=== PATIENT | female | born 1985 ===

== ENCOUNTER → 2023-10-28 12:49 | Outpatient (BNVA) | payer OTHER, SELFPAY | PROVIDERS: PCP Internal Medicine; Visit Provider Physician Assistant Surgical ==

== ENCOUNTER 2023-12-17 08:12 | Outpatient (AMB) | payer OTHER, SELFPAY ==
--- OUTSIDE RECORDS SUMMARY | 2023-12-17 08:14 | XMS_ITS | Continuity of Care Document ---
Author Organization [facility] Address [address] [place] [address]- Care Team Providers Care Ocean Lifeguard Name Role Phone Curtis ANTHONY, Denisse Kellogg Primary Care Physician Encounter [facility] ACCT R [id number] Date(s): 10/24/21 - 11/23/[address] [address] Attending Physician: Sanju James Admitting Physician: Sanju James Referring Physician: Sanju James Allergies, Adverse Reactions, Alerts Substance Reaction Severity Status metFORMIN GI intolerance Active Immunizations Given and Recorded Vaccine Date Status Refusal Reason SARS-CoV-2 (COVID-19) mRNA BNT-162b2 vac 1, 2 01/24/21 Given SARS-CoV-2 (COVID-19) mRNA BNT-162b2 vac 01/03/21 Given tetanus/diphtheria/pertussis, acel(Tdap) 01/25/17 Given 1? Unknown: Resend to [facility]. 2Result Comment: lot was [id number] Medications acetaminophen 325 mg oral tablet 650 mg, 2, tablet, By Mouth, 3 times a day, PRN, # 180 tablet, Refills 11, Tot. Refills 11, Maintenance, for pain, 03/03/21 16:43:00 EDT, Route to Pharmacy Electronically, [facility]/pharmacy #[id number], Partialfill upon patient request if the prescription is fo... Start Date: 03/03/21 Status: Ordered ferrous sulfate 325 mg oral enteric coated tablet 325 mg, 1, tablet, By Mouth, Daily, for anemia, # 30 tablet, Refills 11, Tot. Refills 11, Maintenance, 01/02/21 15:55:00 EDT, Route to Pharmacy Electronically, [facility]/pharmacy #[id number], Partial fill upon patient request if the prescription is for a schedule... Start Date: 01/02/21 Status: Ordered hydrOXYzine hydrochloride 25 mg oral tablet 1 tablet = 25 mg, By Mouth, 4 times a day, PRN for anxiety, # 40 tablet, 0 Refills, Maintenance, 03/03/21 16:43:00 EDT, Tablet, [facility]/pharmacy #[id number], Partial fill upon patient request if the prescription is for a schedule II opioid drug., 153, cm, 03/03... Start Date: 03/03/21 Status: Ordered levothyroxine 0.2 mg oral tablet 1 tablet = 200 mcg, By Mouth, Daily, for hypothyroid, # 60 tablet, 11 Refills, Maintenance, 01/02/21 15:33:00 EDT, Tablet, [facility]/pharmacy #[id number], Partial fill upon patient request if the prescription isfor a schedule II opioid drug., 153, cm, 01/02/21 1... Start Date: 01/02/21 Stop Date: 12/23/22 Status: Ordered Nexplanon 68 mg subcutaneous implant 1 each = 68 mg, Subcutaneous Infusion, Once, # 1 each, 0 Refills, Soft Stop, 03/01/17 16:13:38 Start Date: 03/01/17 Status: Ordered sertraline 100 mg oral tablet 1 tablet, By Mouth, Daily, # 30 tablet, 1 Refills, [facility] STORE [id number], 153, cm, 10/13/21 14:57:00 EDT,Height Start Date: 11/06/21 Status: Ordered Vitamin D3 1000 intl units oral capsule 1 capsule = 25 mcg, By Mouth, Daily, for vitamin d deficiency, # 30 capsule, 11 Refills, Maintenance, 09/23/21 17:57:00 EDT, Capsule, [facility]/pharmacy #[id number], Partial fill upon patient request if the prescription is for a schedule II opioid drug., 153, cm,... Start Date: 09/23/21 Status: Ordered Problem List Condition Effective Dates Status Health Status Inform ant Elevated glucose tolerance test(Confirmed) Active Abnormal uterine bleeding (AUB)(Confirmed) Active Candidal vaginitis(Confirmed) Active B12 deficiency(Confirmed) Active Diabetes(Confirmed) Active Graves' ophthalmopathy(Confirmed) Active Healthy adult(Confirmed) Active Hypothyroid(Confirmed) Active Hypothyroidism, postablative(Confirmed) Active Depression, major, recurrent , severe with psychosis(Confirmed) Active Restless leg syndrome(Confirmed) Active Severe obesity(Confirmed) Active Exogenous obesity(Confirmed) Active Social History Social History Type Response Tobacco Use: 4 or less cigar ettes(less than 1/4 pack)/day in last 30 days. Other: 5 ciggs / day. Type: Cigarettes. Sex Female
--- OUTSIDE RECORDS SUMMARY | 2023-12-17 08:14 | XMS_ITS | Continuity of Care Document ---
Author Organization [facility] Address [address] [place] [address]- Care Team Providers Care Instructional Developer Name Role Phone Denisse Acevedo MD Primary Care Physician [place] [facility] [place](s[place] 08/03/23 - 09/02/23 [facility] [address] [place], [place] [address] Allergies, Adverse Reactions, Alerts Substance Reaction Severity Status metFORMIN GI intolerance Active Immunizations Given and Recorded Vaccine Date Status Refusal Reason SARS-CoV-2 (COVID-19) mRNA BNT-162b2 vac 1, 2 01/24/21 Given SARS-CoV-2 (COVID-19) mRNA BNT-162b2 vac 01/03/21 Given tetanus/diphtheria/pertussis, acel(Tdap) 01/25/17 Given 1? Unknown: Resend to [facility]. 2Result Comment: lot was [id number] Medications Blood Pressure Monitor See Instructions, # 1 each, Refills 0, Tot. Refills 0, Maintenance, HTN, I10 duration: 1 year, takeBP daily 2 hours after morning medications, call MD if BP > 180/100, 08/17/23 9:49:00 EST, Compound, 153, cm, 08/17/23 9:20:00 EST, Height Start Date: 08/17/23 Status: Ordered buPROPion 150 mg/24 hours (XL) oral tablet, extended release 1 tablet = 150 mg, By Mouth, Every 24 hours, d/c fluoxetine, # 30 tablet, 4 Refills, Maintenance, 08/17/23 9:46:00 EST, ER Tablet, [id number], Partial fill upon patient request if the prescription is for a schedule II opioid drug., 1 tablet By... Start Date: 08/17/23 Status: Ordered diclofenac 1% topical gel 1 application, Topically, 4 times a day, PRN Pain , Mild, # 100 Gm, 4 Refills, Maintenance, 01/05/22 11:45:00 EDT, Gel, [facility]/pharmacy #[id number], Partial fill upon patient request if the prescription is for a schedule II opioid drug., 153, cm, 01/05/22 11:0... Start Date: 01/05/22 Status: Ordered ferrous sulfate 325 mg oral enteric coated tablet 325 mg, 1, tablet, By Mouth, Every Wednesday, Wednesday and Wednesday, # 39 tablet, Refills 3, Tot. Refills 3, Maintenance, 05/20/23 10:58:00 EST, Route to Pharmacy Electronically, [facility]/pharmacy #[id number], Partial fill upon patient request if the prescription is... Start Date: 05/20/23 Status: Ordered Freestyle Lite Lancets See Instructions, # 200 each, Refills 11, Tot. Refills 11, Maintenance, Check POC daily and if symptoms of sweats, dizziness, confusion,, DX E11.9, 08/17/23 9:40:00 EST, Compound, 153, cm, 08/17/23 9:20:00 EST, Height Start Date: 08/17/23 Status: Ordered Freestyle Lite Monitor See Instructions, # 1 each, Refills 0, Tot. Refills 0, Maintenance, Check POC TID and qHS and if symptoms of sweats, dizziness, confusion, DX E11.9, 08/17/23 9:40:00 EST, Compound, 153, cm, 08/17/23 9:20:00 EST, Height Start Date: 08/17/23 Status: Ordered Freestyle Lite Test Strips See Instructions, # 50 each, Refills 11, Tot. Refills 11, Maintenance, Check POC daily and if symptoms of sweats, dizziness, confusion, DX E11.9, 08/17/23 16:12:00 EST, Compound, 153, cm, 08/17/23 9:20:00 EST, Height Start Date: 08/17/23 Status: Ordered hydrOXYzine hydrochloride 25 mg oral tablet 1 tablet = 25 mg, By Mouth, 4 times a day, PRN for anxiety, # 40 tablet, 0 Refills, Acute 09/13/23 15:55:00 EDT, 08/26/23 15:54:00 EDT, Tablet, [id number], Partial fill upon patient request if the prescription is for a schedule II opioid drug.... Start Date: 08/26/23 Stop Date: 09/13/23 Status: Ordered levothyroxine 150 mcg (0.15 mg) oral tablet 1 tablet, By Mouth, Daily in AM, BEFORE BREAKFASTON EMPTY STOMACH., # 90 tablet, 1 Refills, Maintenance, 05/02/23 13:38:00 EST, [id number], 153, cm, 11/13/22 9:48:00 EDT, Height Start Date: 05/02/23 Status: Ordered Metamucil 3.4 gm/5.2 gm oral powder for reconstitution = 1.7 Gm, By Mouth, Daily, PRN as needed for constipation, # 283 Gm, 11 Refills, Maintenance, 11/13/22 10:18:00 EDT, REC Powder, [id number], Partial fill upon patient request if the prescription is for a schedule II opioid drug., 153, cm, 0... Start Date: 11/13/22 Status: Ordered olmesartan 5 mg oral tablet 1 tablet, By Mouth, Daily, # 90 tablet, 1 Refills, Maintenance, 06/13/23 9:43:00 EST, [id number], 153, cm, 05/20/23 10:37:00 EST, Height Start Date: 06/13/23 Status: Ordered tirzepatide 2.5 mg/0.5 mL subcutaneous solution = 2.5 mg, Subcutaneous Injection, Every week, rotate injection sites; use Tirzepatide 0.25mg weeklyx 4 weeks then increase dose, # 4 each, 0 Refills, Maintenance, 08/04/23 8:55:00 EST, Solution, [id number], d/c trulicity, 153, cm, 05/20/23 10... Start Date: 08/04/23 Status: Ordered tirzepatide 5 mg/0.5 mL subcutaneous solution = 5 mg, Subcutaneous Injection, Every week, rotate injection sites; use Tirzepatide 0.25mg weekly x4 weeks then increase dose, # 4 each, 4 Refills, Maintenance, 08/04/23 8:55:00 EST, Solution, [id number], Partial fill upon patient request if... Start Date: 08/04/23 Status: Ordered Vitamin C 500 mg oral tablet 1 tablet = 500 mg, By Mouth, Daily, # 90 tablet, 3 Refills, Maintenance, 10/19/22 18:14:00 EDT, Tablet, [id number], Partial fill upon patient request if the prescription is for a schedule II opioid drug., 153, cm, 09/10/22 18:41:00 EDT, Height Start Date: 10/19/22 Status: Ordered Problem List Condition Confirmation Course Effective Dates Status H ealth Status Informant Elevated glucose tolerance test Confirmed Active Candidal vaginitis Confirmed Active B12 deficiency Confirmed Active Diabetes Confirmed Active Graves' ophthalmopathy Confirmed Active Hypertension Confirmed Active Hypothyroid Confirmed Active Iron deficiency anemia Confirmed Active Hypothyroidism, postablative Confirmed Active Depression, major, recurrent, severe with psychosis Confirmed Active Restless leg syndrome Confirmed Active Severe obesity Confirmed Active Tobacco use Confirmed Active Social History Social History Type Response Tobacco Use: 4 or less cigar ettes(less than 1/4 pack)/day in last 30 days. Other: 5 ciggs / day. Type: Cigarettes. Sex Female Patient Care team information Care Team Personnel Name: Curtis ANTHONY, Denisse Kellogg Position: [facility] Physician - Primary Care Member Role: PCP Address: Address: [address] [place] [address]- Care Team Related Persons Name: INDERJIT WATT Address: home [address] [place] [id number] Name: HITESH WATT Address: [place] [address] Name: PT STATES, NO ONE Name: CHELSIE FRY Address: [place] [address]
--- OUTSIDE RECORDS SUMMARY | 2023-12-17 08:14 | XMS_ITS | Continuity of Care Document ---
Author Organization [facility] Address [address] [place] [address]- Care Team Providers Care Wool Puller Name Role Phone Thomas ANTHONY, Miriam Primary Care Physician Encounter [facility] Date(s): 09/04/20 - 10/04/20 [facility] [address] [place] [id number] Allergies, Adverse Reactions, Alerts Substance Reaction Severity Status NKA Active Immunizations Given and Recorded Vaccine Date Status Refusal Reason tetanus/diphtheria/pertussis, acel(Tdap) 01/25/17 Given Medications Apri 0.15 mg-0.03 mg oral tablet 1 tablet, By Mouth, Daily, # 84 tablet, 0 Refills, Maintenance, 02/28/19 12:56:04 EDT, Tablet, 1 tablet By Mouth Daily Start Date: 02/28/19 Status: Ordered busPIRone 15 mg oral tablet 1 tablet = 15 mg, By Mouth, 2 times a day, 0 Refills, Maintenance, 08/17/18 16:19:55 EST Start Date: 08/17/18 Status: Ordered levothyroxine 0.2 mg oral tablet 1 tablet = 200 mcg, By Mouth, Daily, increase from .175mg, # 30 tablet, 3 Refills, Maintenance, 05/04/17 14:19:03, Tablet Start Date: 05/04/17 Stop Date: 09/01/17 Status: Ordered Nexplanon 68 mg subcutaneous implant 1 each = 68 mg, Subcutaneous Infusion, Once, # 1 each, 0 Refills, Soft Stop, 03/01/17 16:13:38 Start Date: 03/01/17 Status: Ordered venlafaxine 37.5 mg oral capsule, extended release 37.5 mg, 1, capsule, By Mouth, Daily, Refills 0, Maintenance, 08/17/18 16:20:19 EST Start Date: 08/17/18 Status: Ordered Problem List Condition Effective Dates Status Health Status Inform ant Elevated glucose tolerance test(Confirmed) Active Abnormal uterine bleeding (AUB)(Confirmed) Active Candidal vaginitis(Confirmed) Active Graves' ophthalmopathy(Confirmed) Active Diabetes, gestational(Confirmed) Active Healthy adult(Confirmed) Active Hypothyroidism, postablative(Confirmed) Active Exogenous obesity(Confirmed) Active Social History Social History Type Response Smoking Status 5-9 cigarettes (betw een 1/4 to 1/2 pack)/day in last 30 days; Type: Cigarettes entered on: 10/27/18 Sex Female
--- OUTSIDE RECORDS SUMMARY | 2023-12-17 08:14 | XMS_ITS | Continuity of Care Document ---
Author Organization [facility] Address [address] [place] [address]- Care Team Providers Care Diesel Machinist Name Role Phone Curtis ANTHONY, Denisse Kellogg Primary Care Physician Encounter [facility] Date(s): 02/06/22 - 03/08/22 [facility] [address] [place] [address]- Allergies, Adverse Reactions, Alerts Substance Reaction Severity Status metFORMIN GI intolerance Active Immunizations Given and Recorded Vaccine Date Status Refusal Reason SARS-CoV-2 (COVID-19) mRNA BNT-162b2 vac 1, 2 01/24/21 Given SARS-CoV-2 (COVID-19) mRNA BNT-162b2 vac 01/03/21 Given tetanus/diphtheria/pertussis, acel(Tdap) 01/25/17 Given 1? Unknown: Resend to [facility]. 2Result Comment: lot was [id number] Medications diclofenac 1% topical gel 1 application, Topically, 4 times a day, PRN Pain , Mild, # 100 Gm, 4 Refills, Maintenance, 01/05/22 11:45:00 EDT, Gel, [id number], Partial fill upon patient request if the prescription is for a schedule II opioid drug., 153, cm, 01/05/22 11:0... Start Date: 01/05/22 Status: Ordered ferrous gluconate 324 mg oral tablet 1 tablet = 324 mg, By Mouth, Every other day, for anemia;, # 15 tablet, 4 Refills, Maintenance, 02/05/22 13:55:00 EDT, Tablet, [id number], Change iron formulation, 153, cm, 02/05/22 13:39:00 EDT, Height Start Date: 02/05/22 Status: Ordered FLUoxetine 20 mg oral capsule 20 mg, 1, capsule, By Mouth, Daily, # 30 capsule, Refills 4, Tot. Refills 4, Maintenance, 02/05/22 13:20:00 EDT, Route to Pharmacy Electronically, [facility]/pharmacy #[id number], Partial fill upon patient request if the prescription is for a schedule II opioid dr... Start Date: 02/05/22 Status: Ordered Freestyle Lite Lancets See Instructions, # 200 each, Refills 11, Tot. Refills 11, Maintenance, Check POC daily and if symptoms of sweats, dizziness, confusion,, DX E11.9, 01/05/22 11:35:00 EDT, Compound, 153, cm, 01/05/22 11:00:00 EDT, Height Start Date: 01/05/22 Status: Ordered Freestyle Lite Monitor See Instructions, # 1 each, Refills 0, Tot. Refills 0, Maintenance, Check POC daily and if symptomsof sweats, dizziness, confusion, DX E11.9, Z79.4, 01/05/22 11:34:00 EDT, Compound, 153, cm, 01/05/22 11:00:00 EDT, Height Start Date: 01/05/22 Status: Ordered Freestyle Lite Test Strips See Instructions, # 200 each, Refills 11, Tot. Refills 11, Maintenance, Check POC daily and if symptoms of sweats, dizziness, confusion, DX E11.9, 01/05/22 11:35:00 EDT, Compound, 153, cm, 01/05/22 11:00:00 EDT, Height Start Date: 01/05/22 Status: Ordered hydrOXYzine hydrochloride 25 mg oral tablet 1 tablet = 25 mg, By Mouth, 4 times a day, PRN for anxiety, # 40 tablet, 0 Refills, Maintenance, 03/03/21 16:43:00 EDT, Tablet, [facility]/pharmacy #[id number], Partial fill upon patient request if the prescription is for a schedule II opioid drug., 153, cm, 03/03... Start Date: 03/03/21 Status: Ordered levothyroxine 150 mcg (0.15 mg) oral tablet 1 tablet = 150 mcg, By Mouth, Daily, decreased from 200mcg on 02/06 due to TSH levels, # 30 tablet, 2 Refills, Maintenance, 02/06/22 11:30:00 EDT, Tablet, [id number], Partial fill upon patient request if the prescription is for a schedule... Start Date: 02/06/22 Status: Ordered MetFORMIN (Eqv-Fortamet) 1000 mg oral tablet, extended release 1 tablet = 1,000 mg, By Mouth, 2 times a day, # 60 tablet, 0 Refills, Maintenance, 02/05/22 13:55:00 EDT, [id number], Partial fill upon patient request if the prescription is for a schedule II opioid drug., 153, cm, 02/05/22 13:39:00 EDT, Height Start Date: 02/05/22 Stop Date: 03/07/22 Status: Ordered Nexplanon 68 mg subcutaneous implant 1 each = 68 mg, Subcutaneous Infusion, Once, # 1 each, 0 Refills, Soft Stop, 03/01/17 16:13:38 Start Date: 03/01/17 Status: Ordered Provera 10 mg oral tablet 10 mg, 1, tablet, By Mouth, Daily, # 10 tablet, Refills 0, Tot. Refills 0, Maintenance, 01/05/22 11:40:00 EDT, Route to Pharmacy Electronically, [id number], Partial fill upon patient request if the prescription is for a schedule II opioid drug... Start Date: 01/05/22 Stop Date: 01/15/22 Status: Ordered Vitamin D3 1000 intl units oral capsule 1 capsule = 25 mcg, By Mouth, Daily, for vitamin d deficiency, # 30 capsule, 11 Refills, Maintenance, 09/23/21 17:57:00 EDT, Capsule, [id number], Partial fill upon patient request if the prescription is for a schedule II opioid drug., 153, cm,... Start Date: 09/23/21 Status: Ordered Problem List Condition Effective Dates Status Health Status Inform ant Elevated glucose tolerance test(Confirmed) Active Abnormal uterine bleeding (AUB)(Confirmed) Active Candidal vaginitis(Confirmed) Active B12 deficiency(Confirmed) Active Diabetes(Confirmed) Active Graves' ophthalmopathy(Confirmed) Active Healthy adult(Confirmed) Active Hypothyroid(Confirmed) Active Iron deficiency anemia(Confirmed) Active Hypothyroidism, postablative(Confirmed) Active Depression, major, recurrent , severe with psychosis(Confirmed) Active Restless leg syndrome(Confirmed) Active Severe obesity(Confirmed) Active Exogenous obesity(Confirmed) Active Social History Social History Type Response Tobacco Use: 4 or less cigar ettes(less than 1/4 pack)/day in last 30 days. Other: 5 ciggs / day. Type: Cigarettes. Sex Female Care Team Personnel Name: Curtis ANTHONY, Denisse Kellogg Address: [address] [place] [address], -Level [facility] [address]
--- OUTSIDE RECORDS SUMMARY | 2023-12-17 08:14 | XMS_ITS | Continuity of Care Document ---
Author Organization [facility] Address [address], [address] [place] [address]- Care Team Providers Care Bulk Gas Specialist Name Role Phone Curtis ANTHONY, Denisse Kellogg Primary Care Physician Encounter [facility] Date(s): 04/15/23 - 05/15/23 [facility] [address], [address] [place] [address]- Allergies, Adverse Reactions, Alerts Substance Reaction Severity Status metFORMIN GI intolerance Active Immunizations Given and Recorded Vaccine Date Status Refusal Reason SARS-CoV-2 (COVID-19) mRNA BNT-162b2 vac 1, 2 01/24/21 Given SARS-CoV-2 (COVID-19) mRNA BNT-162b2 vac 01/03/21 Given tetanus/diphtheria/pertussis, acel(Tdap) 01/25/17 Given 1? Unknown: Resend to [facility]. 2Result Comment: lot was [id number] Medications diclofenac 1% topical gel 1 application, Topically, 4 times a day, PRN Pain , Mild, # 100 Gm, 4 Refills, Maintenance, 01/05/22 11:45:00 EDT, Gel, [facility]/pharmacy #[id number], Partial fill upon patient request if the prescription is for a schedule II opioid drug., 153, cm, 01/05/22 11:0... Start Date: 01/05/22 Status: Ordered ferrous sulfate 325 mg oral enteric coated tablet 325 mg, 1, tablet, By Mouth, Every Wednesday, Wednesday and Wednesday, # 45 tablet, Refills 3, Tot. Refills 3, Maintenance, 11/13/22 10:26:00 EDT, Route to Pharmacy Electronically, [facility]/pharmacy #[id number], Partial fill upon patient request if the prescription is... Start Date: 11/13/22 Status: Ordered FLUoxetine 40 mg oral capsule 1 capsule = 40 mg, By Mouth, Daily, # 30 capsule, 4 Refills, Maintenance, 09/10/22 19:48:00 EDT, Capsule, [id number], Partial fill upon patient request if the prescription is for a schedule II opioid drug., 153, cm, 09/10/22 18:41:00 EDT, Height Start Date: 09/10/22 Status: Ordered Freestyle Lite Lancets See Instructions, [...] symptomsof sweats, dizziness, confusion, DX E11.9, Z79.4, 11/05/22 9:35:00 EDT, Compound, 153, cm, 09/10/2317:41:00 EDT, Height Start Date: 11/05/22 Status: Ordered Freestyle Lite Test Strips See Instructions, # 200 each, Refills 11, Tot. Refills 11, Maintenance, Check POC daily and if symptoms of sweats, dizziness, confusion, DX E11.9, 01/05/22 11:35:00 EDT, Compound, 153, cm, 01/05/22 11:00:00 EDT, Height Start Date: 01/05/22 Status: Ordered levothyroxine 150 mcg (0.15 mg) oral tablet 1 tablet, By Mouth, Daily in AM, BEFORE BREAKFASTON EMPTY STOMACH., # 90 tablet, 1 Refills, Maintenance, 05/02/23 13:38:00 EST, [facility] [id number], 153, cm, 11/13/22 9:48:00 EDT, Height Start Date: 05/02/23 Status: Ordered Metamucil 3.4 gm/5.2 gm oral powder for reconstitution = 1.7 Gm, By Mouth, Daily, PRN as needed for constipation, # 283 Gm, 11 Refills, Maintenance, 11/13/22 10:18:00 EDT, REC Powder, [id number], Partial fill upon patient request if the prescription is for a schedule II opioid drug., 153, cm, 060... Start Date: 11/13/22 Status: Ordered olmesartan 5 mg oral tablet 1 tablet = 5 mg, By Mouth, Daily, # 30 tablet, 5 Refills, Maintenance, 12/09/22 18:05:00 EDT, Tablet, [id number], Partial fill upon patient request if the prescription is for a schedule II opioid drug., 153, cm, 11/13/22 9:48:00 EDT, Height Start Date: 12/09/22 Status: Ordered Trulicity Pen 1.5 mg/0.5 mL subcutaneous solution See Instructions, INJECT 1 PEN SUBCUTANEOUSLY ONCE WEEKLY, ROTATE INJECTION SITES, # 2 Unknown, 5 Refills, Maintenance, 05/02/23 13:38:00 EST, [facility] [id number], 153, cm, 11/13/22 9:48:00 EDT, Height Start Date: 05/02/23 Status: Ordered Vitamin C 500 mg oral [...] Care team information Care Team Personnel Name: Denisse Acevedo MD Position: [facility] Physician - Primary Care Member Role: PCP Address: Address: [address] [place] [address]- [place] Care Team Related Persons Name: INDERJIT WATT Address: home [address] [place] [id number] Name: HITESH WATT Address: [place] [address] Name: PT STATES, NO ONE Name: CHELSIE FRY Address: [place] [address]
--- OUTSIDE RECORDS SUMMARY | 2023-12-17 08:14 | XMS_ITS | Continuity of Care Document ---
Author Organization [facility] Address [address] [place] [address]- Care Team Providers Care Landcare Officer Name Role Phone Curtis ANTHONY, Denisse Kellogg Primary Care Physician Encounter [facility] [place] Date(s): 04/14/22 - 06/12/[address] [address]- Attending Physician: Not on Staff, Attending MD Allergies, Adverse Reactions, Alerts Substance Reaction Severity Status metFORMIN GI intolerance Active Immunizations Given and Recorded Vaccine Date Status Refusal Reason SARS-CoV-2 (COVID-19) mRNA BNT-162b2 vac 1, 2 01/24/21 Given SARS-CoV-2 (COVID-19) mRNA BNT-162b2 vac 01/03/21 Given tetanus/diphtheria/pertussis, acel(Tdap) 01/25/17 Given 1? Unknown: Resend to [facility]. 2Result Comment: lot was [id number] Medications Debbie 0.35 mg oral tablet 1 tablet = 0.35 mg, By Mouth, Daily, # 30 tablet, 3 Refills, Maintenance, 04/14/22 11:53:00 EDT, Tablet, [id number], Partial fill upon patient request if the prescription is for a schedule IIopioid drug., 153, cm, 04/14/22 8:08:00 EDT, Height Start Date: 04/14/22 Status: Ordered diclofenac 1% topical gel 1 [...] other day, for anemia;, # 15 tablet, 11 Refills, Maintenance, 05/01/22 15:17:00 EST, Tablet, [facility]/pharmacy #[id number], Change iron formulation, 153, cm, 04/14/22 8:08:00 EDT, Height Start Date: 05/01/22 Status: Ordered FLUoxetine 20 mg oral capsule 20 mg, 1, capsule, By Mouth, Daily, # 30 capsule, Refills 4, Tot. Refills 4, Maintenance, 02/05/22 13:20:00 EDT, [id number], Partial fill upon patient request if [...] 0 Refills, Maintenance, 03/03/21 16:43:00 EDT, Tablet, [id number], Partial fill upon patient request if the prescription is for a schedule II opioid drug., 153, cm, 03/03... Start Date: 03/03/21 Status: Ordered levothyroxine 150 mcg (0.15 mg) oral tablet 1 tablet = 150 mcg, By Mouth, Daily, as a single daily dose before breakfast; on an empty stomach;,# 30 tablet, 11 Refills, Maintenance, 04/23/22 12:49:00 EST, Tablet, [id number], Partial fill upon patient request if the prescription is for... Start Date: 04/23/22 Status: Ordered MetFORMIN (Eqv-Fortamet) 1000 mg oral tablet, extended release 1 tablet = 1,000 mg, By Mouth, 2 times a day, # 60 tablet, 0 Refills, Maintenance, 02/05/22 13:55:00 EDT, [id number], Partial fill upon patient request if the prescription is for a schedule II opioid drug., 153, cm, 02/05/22 13:39:00 EDT, Height Start Date: 02/05/22 Stop Date: 03/07/22 Status: Ordered metFORMIN 1000 mg oral tablet 1 tablet = 1,000 mg, By Mouth, 2 times a day, # 60 tablet, 11 Refills, Maintenance, 05/01/22 15:00:00 EST, Tablet, [id number], Partial fill upon patient request if the prescription is for a schedule II opioid drug., 153, cm, 04/14/22 8:08:00 E... Start Date: 05/01/22 Status: Ordered Nexplanon 68 mg subcutaneous implant [...] Date: 09/23/21 Status: Ordered Problem List Condition Confirmation Course Effective Dates Status H ealth Status Informant Elevated glucose tolerance test Confirmed Active Abnormal uterine bleeding (AUB) Confirmed Active Candidal vaginitis Confirmed Active B12 deficiency Confirmed Active Diabetes Confirmed Active Graves' ophthalmopathy Confirmed Active Healthy adult Confirmed Active Hypothyroid Confirmed Active Iron deficiency anemia Confirmed Active Hypothyroidism, postablative Confirmed Active Depression, major, recurrent, severe with psychosis Confirmed Active Restless leg syndrome Confirmed Active Severe obesity Confirmed Active Exogenous obesity Confirmed Active Social History Social History Type Response Tobacco Use: 4 or less cigar ettes(less than 1/4 pack)/day in last 30 days. Other: 5 ciggs / day. Type: Cigarettes. Sex Female Patient Care team information Care Team Personnel Name: Denisse Acevedo MD Position: [facility] Primary Care Physician Member Role: PCP Address: Address: [address] [place] [address], -[facility] [place] [address]- Care Team Related Persons Name: INDERJIT WATT Address: home [address] [place] [address] Name: HITESH WATT Address: [place] [address] Name: PT STATES, NO ONE Name: CHELSIE FRY Address: [place] [address]
--- OUTSIDE RECORDS SUMMARY | 2023-12-17 08:14 | XMS_ITS | Continuity of Care Document ---
Author Organization [facility] Address [address] [place] [address]- Care Team Providers Care Cigarette Seller Name Role Phone Denisse Acevedo MD Primary Care Physician [place] [facility] [place]16[place]23 [place] 10/16/23 [facility] [address] [place], [place] [phone] Allergies, Adverse Reactions, Alerts Substance Reaction Severity Status metFORMIN GI intolerance Active Immunizations Given and Recorded Vaccine Date Status Refusal Reason SARS-CoV-2 (COVID-19) mRNA BNT-162b2 vac 1, 2 01/24/21 Given SARS-CoV-2 (COVID-19) mRNA BNT-162b2 vac 01/03/21 Given tetanus/diphtheria/pertussis, acel(Tdap) 01/25/17 Given 1? Unknown: Resend to [facility]. 2Result Comment: lot was [id number] Medications Blood Pressure Monitor See Instructions, # [...] Maintenance, 08/17/23 9:46:00 EST, ER Tablet, [id number], Partial fill upon patient request if the prescription is for a schedule II opioid drug., 1 tablet By... Start Date: 08/17/23 Status: Ordered diclofenac 1% topical gel 1 application, Topically, 4 times a day, PRN Pain , Mild, # 100 Gm, 4 Refills, Maintenance, 01/05/22 11:45:00 EDT, Gel, [facility]/pharmacy #[id number], Partial fill upon patient request if the prescription is for a schedule II opioid drug., 153, cm, 01/05/22 11:0... Start Date: 01/05/22 Status: Ordered ferrous sulfate 325 mg oral enteric coated tablet 325 mg, 1, tablet, By Mouth, Every Wednesday, Wednesday and Wednesday, # 39 tablet, Refills 3, Tot. Refills 3, Maintenance, 05/20/23 10:58:00 EST, Route to Pharmacy Electronically, [facility]/pharmacy #[id number], Partial fill upon patient request if [...] EST, Height Start Date: 08/17/23 Status: Ordered levothyroxine 150 mcg (0.15 mg) oral tablet 1 tablet, By Mouth, Daily in AM, BEFORE BREAKFASTON EMPTY STOMACH., # 90 tablet, 1 Refills, Maintenance, 05/02/23 13:38:00 EST, [id number], 153, cm, 11/13/22 9:48:00 EDT, Height Start [...] tablet, 1 Refills, Maintenance, 06/13/23 9:43:00 EST, [facility], 153, cm, 05/20/23 10:37:00 EST, Height Start Date: 06/13/23 Status: Ordered tirzepatide 5 mg/0.5 mL subcutaneous solution = 5 mg, Subcutaneous Injection, Every week, rotate injection sites; use Tirzepatide 0.25mg weekly x4 weeks then increase dose, # 4 each, 4 Refills, Maintenance, 09/30/23 18:26:00 EDT, Solution, [facility], Partial fill upon patient re... Start Date: 09/30/23 Status: Ordered triamcinolone 0.025% topical cream 1 application, Topically, 2 times a day, for 14 days, # 60 Gm, 1 Refills, Acute 10/28/23 18:43:00 EDT, 09/30/23 18:43:00 EDT, Cream, [facility]/pharmacy #[id number], Partial fill upon patient request if the prescription is for a schedule II opioid drug., 1 applica... Start Date: 09/30/23 Stop Date: 10/28/23 Status: Ordered Vitamin C 500 mg oral [...] Informant Elevated glucose tolerance test Confirmed Active Mid back pain Confirmed Active Candidal vaginitis Confirmed Active B12 [...] Team Personnel Name: Denisse Acevedo MD Position: [facility] Physician - Primary Care Member Role: PCP Address: Address: [address] [place] [address]- Care Team Related Persons Name: INDERJIT WATT Address: home [address] [place] [address] Name: HITESH WATT Address: [place] [address] Name: PT STATES, NO ONE Name: CHELSIE FRY Address: [place] [address]
--- OUTSIDE RECORDS SUMMARY | 2023-12-17 08:14 | XMS_ITS | Continuity of Care Document ---
Author Organization [facility] Address [address] [place] [address]- Care Team Providers Care Chocolate Molder Name Role Phone Ava Romero DO Primary Care Physician Encounter [facility] [place] Date(s): 05/22/19 - 06/01/[address] [address]- [facility] Attending Physician: AdmtrSanju Allergies, Adverse Reactions, Alerts Substance Reaction Severity [...] Inform ant Elevated glucose tolerance test(Confirmed) Active Candidal vaginitis(Confirmed) Active Graves' ophthalmopathy(Confirmed) Active Diabetes, gestational(Confirmed) Active Healthy adult(Confirmed) Active Hypothyroidism, postablative(Confirmed) Active Exogenous obesity(Confirmed) Active Social History Social History Type Response Smoking Status 5-9 cigarettes (betw een 1/4 to 1/2 pack)/day in last 30 days; Type: Cigarettes entered on: 10/27/18 Sex Female
--- OUTSIDE RECORDS SUMMARY | 2023-12-17 08:14 | XMS_ITS | Continuity of Care Document ---
Author Organization [facility] Address [address] [place] [address]- Care Team Providers Care Technical Solutions Director Name Role Phone Miriam Guzman MD Primary Care Physician En[id number] Date(s): 02/13/20 - 04/12/[address] [address]- [facility] Attending Physician: Not on Staff, Attending MD [...]
--- OUTSIDE RECORDS SUMMARY | 2023-12-17 08:14 | XMS_ITS | Continuity of Care Document ---
Author Organization [facility] Address [address] [place] [address]- Care Team Providers Care Mobile Manager Name Role Phone Denisse Acevedo MD Primary Care Physician [place] [facility] [place](s): 11/11/23 - 12/11/23 [facility] [address] [place] [address] [phone] Allergies, Adverse Reactions, Alerts Substance Reaction Severity Status metFORMIN GI intolerance Active Immunizations Given and Recorded Vaccine Date Status Refusal Reason SARS-CoV-2 (COVID-19) mRNA BNT-162b2 vac 1, 2 01/24/21 Given SARS-CoV-2 (COVID-19) mRNA BNT-162b2 vac 01/03/21 Given tetanus/diphtheria/pertussis, acel(Tdap) 01/25/17 Given 1? Unknown: Resend to [facility]. 2Result Comment: lot was [id number] Medications Blood Pressure Monitor See Instructions, # 1 each, Refills 0, Tot. Refills 0, Maintenance, HTN, I10 duration: 1 year, takeBP daily 2 hours after morning medications, call MD if BP > 180/100, 08/17/23 9:49:00 EST, Compound, 153, cm, 08/17/23 9:20:00 EST, Height Start Date: 08/17/23 Status: Ordered buPROPion 150 mg/24 hours (XL) oral tablet, extended release 1 tablet, By Mouth, Daily, # 90 tablet, 1 Refills, Maintenance, 11/17/23 11:13:00 EDT, [id number], 90, TAKE 1 TABLET BY MOUTH EVERY DAY, 153, cm, 09/30/23 18:13:00 EDT, Height, 100, kg, 08/25/2417:28:00 EDT, Dry Weight Start Date: 11/17/23 Status: Ordered diclofenac 1% topical gel 1 application, Topically, 4 times a day, PRN Pain , Mild, # 100 Gm, 4 Refills, Maintenance, 01/05/22 11:45:00 EDT, Gel, [facility]/pharmacy #[id number], Partial fill upon patient request if the prescription is for a schedule II opioid drug., 153, cm, 01/05/22 11:0... Start Date: 01/05/22 Status: Ordered ferrous sulfate 325 mg oral enteric coated tablet 325 mg, 1, tablet, By Mouth, Every Wednesday, Wednesday and Wednesday, # 39 tablet, Refills 3, Tot. Refills 3, Maintenance, 05/20/23 10:58:00 EST, Route to Pharmacy Electronically, [facility]/pharmacy #[id number], Partial fill upon patient request [...] STOMACH., # 90 tablet, 1 Refills, Maintenance, 10/28/23 15:44:00 EDT, [id number], 153, cm, 09/30/23 18:13:00 EDT, Height, 100, kg, 08/26/23 18:28:00 EDT, Dry Weight Start Date: 10/28/23 Status: Ordered Metamucil 3.4 gm/5.2 gm oral powder for reconstitution = 1.7 Gm, By Mouth, Daily, PRN as needed for constipation, # 283 Gm, 11 Refills, Maintenance, 11/13/22 10:18:00 EDT, REC Powder, [facility]/pharmacy #[id number], Partial fill upon patient request if the prescription is for a schedule II opioid drug., 153, cm, ... Start Date: 11/13/22 Status: Ordered olmesartan 5 mg oral tablet 1 tablet, By Mouth, Daily, # 90 tablet, 1 Refills, Maintenance, 06/13/23 9:43:00 EST, [id number], 153, cm, 05/20/23 10:37:00 EST, Height Start Date: 06/13/23 Status: Ordered tirzepatide 5 mg/0.5 mL subcutaneous solution = 5 mg, Subcutaneous Injection, Every week, rotate injection sites; use Tirzepatide 0.25mg weekly x4 weeks then increase dose, # 4 each, 4 Refills, Maintenance, 09/30/23 18:26:00 EDT, Solution, [facility], Partial fill upon patient re... Start Date: 09/30/23 Status: Ordered Vitamin C 500 mg oral tablet 1 tablet = 500 mg, By Mouth, Daily, # 90 tablet, 3 Refills, Maintenance, 10/19/22 18:14:00 EDT, Tablet, [facility]/pharmacy #[id number], Partial fill upon patient request [...] Team Personnel Name: Denisse Acevedo MD Position: [facility] Physician - Primary Care Member Role: PCP Address: Address: [address] [place] [address]- Care Team Related Persons Name: INDERJIT WATT Address: home [address] [place] [address] Name: HITESH WATT Address: [place] [address] Name: PT STATES, NO ONE Name: CHELSIE FRY Address: [place] [address]
--- OUTSIDE RECORDS SUMMARY | 2023-12-17 08:14 | XMS_ITS | Continuity of Care Document ---
Author Organization [facility] Address [address] [place] [address]- Care Team Providers Care Eyewear Manufacturing Supervisor Name Role Phone Curtis ANTHONY, Denisse Kellogg Primary Care Physician Encounter [facility] Date(s): 01/24/21 - 02/23/21 [facility] [address] [place] [address]- Attending Physician: Sanju James Admitting Physician: Sanju James Referring Physician: AdmtrSanju Allergies, Adverse Reactions, Alerts Substance Reaction Severity Status NKA Active Immunizations Given and Recorded Vaccine Date Status Refusal Reason SARS-CoV-2 (COVID-19) mRNA BNT-162b2 vac 1 01/24/21 Given SARS-CoV-2 (COVID-19) mRNA BNT-162b2 vac 01/03/21 Given tetanus/diphtheria/pertussis, acel(Tdap) 01/25/17 Given 1Result Comment: lot was [id number] Medications ferrous sulfate 325 mg oral enteric coated tablet 325 mg, 1, tablet, By Mouth, Daily, for anemia, # 30 tablet, Refills 11, Tot. Refills 11, Maintenance, 01/02/21 15:55:00 EDT, Route to Pharmacy Electronically, [facility]/pharmacy #[id number], Partial fill upon patient request if the prescription is for a schedule... Start Date: 01/02/21 Status: Ordered gabapentin 100 mg oral capsule 200 mg, 2, capsule, By Mouth, Daily, for restless legs, # 60 capsule, Refills 11, Tot. Refills 11, Maintenance, 01/02/21 15:35:00 EDT, Route to Pharmacy Electronically, [facility]/pharmacy #[id number], Partial fill upon patient request if the prescription is for a... Start Date: 01/02/21 Stop Date: 03/03/21 Status: Ordered levothyroxine 0.2 mg oral tablet 1 tablet = 200 mcg, By Mouth, Daily, for hypothyroid, # 60 tablet, 11 Refills, Maintenance, 01/02/21 15:33:00 EDT, Tablet, [facility]/pharmacy #[id number], Partial fill upon patient request if the prescription isfor a schedule II opioid drug., 153, cm, 01/02/21 1... Start Date: 01/02/21 Stop Date: 12/23/22 Status: Ordered metFORMIN 500 mg oral tablet, extended release 1 tablet = 500 mg, By Mouth, Daily, for pre-diabetes, # 30 tablet, 4 Refills, Maintenance, 01/02/2115:38:00 EDT, ER Tablet, [facility]/pharmacy #[id number], Partial fill upon patient request if the prescription is for a schedule II opioid drug., 153, cm, 01/02/21... Start Date: 01/02/21 Status: Ordered Nexplanon 68 mg subcutaneous implant 1 each = 68 mg, Subcutaneous Infusion, Once, # 1 each, 0 Refills, Soft Stop, 03/01/17 16:13:38 Start Date: 03/01/17 Status: Ordered Problem List Condition Effective Dates Status Health Status Inform ant Elevated glucose tolerance test(Confirmed) Active Abnormal uterine bleeding (AUB)(Confirmed) Active Candidal vaginitis(Confirmed) Active B12 deficiency(Confirmed) Active Graves' ophthalmopathy(Confirmed) Active Diabetes, gestational(Confirmed) Active Healthy adult(Confirmed) Active Hypothyroid(Confirmed) Active Hypothyroidism, postablative(Confirmed) Active Pre-diabetes(Confirmed) Active Restless leg syndrome(Confirmed) Active Exogenous obesity(Confirmed) Active Social History Social History Type Response Tobacco Use: 4 or less cigar ettes(less than 1/4 pack)/day in last 30 days. Other: 3 ciggs / day. Type: Cigarettes. Sex Female
--- OUTSIDE RECORDS SUMMARY | 2023-12-17 08:14 | XMS_ITS | Continuity of Care Document ---
Author Organization [facility] Address [address] [place] [address]- Care Team Providers Care Imaging Aide Name Role Phone Curtis ANTHONY, Denisse Kellogg Primary Care Physician [place] [facility] [id number] Date(s): 12/19/21 - 01/18/[address] [address] Attending Physician: Sanju James Admitting Physician: Sanju [...] [facility]. 2Result Comment: lot was [id number] Medications acetaminophen 325 mg oral tablet 650 mg, 2, tablet, By Mouth, 3 times a day, PRN, # 180 tablet, Refills 11, Tot. Refills 11, Maintenance, for pain, 03/03/21 16:43:00 EDT, Route to Pharmacy Electronically, [facility]/pharmacy #[id number], Partialfill upon patient request if the prescription is fo... Start Date: 03/03/21 Status: Ordered diclofenac 1% topical gel 1 [...] anemia;, # 15 tablet, 4 Refills, Maintenance, 01/05/22 11:44:00 EDT, Tablet, [facility]/pharmacy #[id number], Change iron formulation, 153, cm, 01/05/22 11:00:00 EDT, Height Start Date: 01/05/22 Status: Ordered FLUoxetine 10 mg oral capsule 10 mg, 1, capsule, By Mouth, Daily, take sertraline 100mg 0.5 tab daily x 3 days then take fluoxetine 10mg cap daily x 2 weeks then fluoxetine 20mg daily, # 14 capsule, Refills 0, Tot. Refills 0, Maintenance, 01/05/22 11:47:00 EDT, Route to Pharmacy E... Start Date: 01/05/22 Stop Date: 01/19/22 Status: Ordered FLUoxetine 20 mg oral capsule 20 mg, 1, capsule, By Mouth, Daily, take sertraline 100mg 0.5 tab daily x 3 days then take fluoxetine 10mg cap daily x 2 weeks then fluoxetine 20mg daily, # 30 capsule, Refills 4, Tot. Refills 4, Maintenance, 01/05/22 11:47:00 EDT, Route to Pharmacy E... Start Date: 01/05/22 Status: Ordered Freestyle Lite Lancets See Instructions, [...] 0 Refills, Maintenance, 03/03/21 16:43:00 EDT, Tablet, [facility]/pharmacy #[id number], Partial fill upon patient request if the prescription is for a schedule II opioid drug., 153, cm, 03/03... Start Date: 03/03/21 Status: Ordered levothyroxine 0.2 mg oral tablet 1 tablet = 200 mcg, By Mouth, Daily, for hypothyroid, # 60 tablet, 11 Refills, Maintenance, 01/02/21 15:33:00 EDT, Tablet, [id number], Partial fill upon patient request if the prescription isfor a schedule II opioid drug., 153, cm, 01/02/21 1... Start Date: 01/02/21 Stop Date: 12/23/22 Status: Ordered metFORMIN 500 mg oral tablet, extended release 2 tablet = 1,000 mg, By Mouth, Daily, take 1 tab daily x 2 weeks then 2 tab daily, # 60 tablet, 4 Refills, Maintenance, 01/05/22 11:42:00 EDT, ER Tablet, [facility]/pharmacy #[id number], Partial fill upon patientrequest if the prescription is for a schedule II op... Start Date: 01/05/22 Status: Ordered Nexplanon 68 mg subcutaneous implant 1 each = 68 mg, Subcutaneous Infusion, Once, # 1 each, 0 Refills, Soft Stop, 03/01/17 16:13:38 Start Date: 03/01/17 Status: Ordered Provera 10 mg oral tablet 10 mg, 1, tablet, By Mouth, Daily, # 10 tablet, Refills 0, Tot. Refills 0, Maintenance, 01/05/22 11:40:00 EDT, Route to Pharmacy Electronically, [facility]/pharmacy #[id number], Partial fill upon patient request if the prescription is for a schedule II opioid drug... Start Date: 01/05/22 Stop Date: 01/15/22 Status: Ordered Vitamin D3 1000 intl units oral capsule 1 capsule = 25 mcg, By Mouth, Daily, for vitamin d deficiency, # 30 capsule, 11 Refills, Maintenance, 09/23/21 17:57:00 EDT, Capsule, [facility]/pharmacy #[id number], Partial fill upon patient request [...]
--- OUTSIDE RECORDS SUMMARY | 2023-12-17 08:14 | XMS_ITS | Continuity of Care Document ---
Author Organization [facility] Address [address] [place] [address]- Care Team Providers Care Bisque Placer Name Role Phone Denisse Acevedo MD Primary Care Physician [place] [facility] [place] 04/06/23 - 05/23/23 [facility] [address] [place], [place] [address] Attending Physician: Pierce Hays MD Admitting Physician: Pierce Hays MD Allergies, Adverse Reactions, Alerts Substance Reaction Severity Status metFORMIN GI intolerance Active Immunizations Given and Recorded Vaccine Date Status Refusal Reason SARS-CoV-2 (COVID-19) mRNA BNT-162b2 vac 1, 2 01/24/21 Given SARS-CoV-2 (COVID-19) mRNA BNT-162b2 vac 01/03/21 Given tetanus/diphtheria/pertussis, acel(Tdap) 01/25/17 Given 1? Unknown: Resend to [facility]. 2Result Comment: lot was [id number] Medications diclofenac 1% topical gel 1 application, Topically, 4 times a day, PRN Pain , Mild, # 100 Gm, 4 Refills, Maintenance, 01/05/22 11:45:00 EDT, Gel, [id number], Partial fill upon patient request if the prescription is for a schedule II opioid drug., 153, cm, 01/05/22 11:0... Start Date: 01/05/22 Status: Ordered ferrous sulfate 325 mg oral enteric coated tablet 325 mg, 1, tablet, By Mouth, Every Wednesday, Wednesday and Wednesday, # 39 tablet, Refills 3, Tot. Refills 3, Maintenance, 05/20/23 10:58:00 EST, Route to Pharmacy Electronically, [id number], Partial fill upon patient request if the prescription is... Start Date: 05/20/23 Status: Ordered FLUoxetine 20 mg oral tablet 3 tablet = 60 mg, By Mouth, Daily, # 90 tablet, 2 Refills, Maintenance, 05/21/23 11:30:00 EST, Tablet, [facility]/pharmacy #[id number], Partial fill upon patient request if the prescription is for a schedule II opioid drug., 153, cm, 05/20/23 10:37:00 EST, Height Start Date: 05/21/23 Stop Date: 08/19/23 Status: Ordered Freestyle Lite Lancets See Instructions, [...] Start Date: 11/05/22 Status: Ordered Freestyle Lite Monitor See Instructions, # 1 each, Refills 0, Tot. Refills 0, Maintenance, Use as directed to check blood sugar daily and if symptomatic; Dx: E11.9; Duration: Lifetime, 05/20/23 14:31:00 EST, Supply Start Date: 05/20/23 Status: Ordered Freestyle Lite Test Strips See [...] tablet, 1 Refills, Maintenance, 05/02/23 13:38:00 EST, [id number], 153, cm, 11/13/22 9:48:00 EDT, Height Start Date: 05/02/23 Status: Ordered Metamucil 3.4 gm/5.2 gm oral powder for reconstitution = 1.7 Gm, By Mouth, Daily, PRN as needed for constipation, # 283 Gm, 11 Refills, Maintenance, 11/13/22 10:18:00 EDT, REC Powder, [facility]/pharmacy #[id number], Partial fill upon patient request [...] Unknown, 5 Refills, Maintenance, 05/02/23 13:38:00 EST, [id number], 153, cm, 11/13/22 9:48:00 EDT, Height Start [...] Team Personnel Name: Denisse Acevedo MD Position: S Physician - Primary Care Member Role: PCP Address: Address: [address] [place] [address]- Care Team Related Persons Name: INDERJIT WATT Address: home [address] [place] [address] Name: HITESH WATT Address: [place] [address] Name: PT STATES, NO ONE Name: CHELSIE FRY Address: [place] [address]
--- OUTSIDE RECORDS SUMMARY | 2023-12-17 08:15 | XMS_ITS | Continuity of Care Document ---
Author Organization [facility] Address [address] [place] [address]- Care Team Providers Care Import/Export Administrator Name Role Phone Denisse Acevedo MD Primary Care Physician Encounter [facility] Date(s): 06/13/23 - 07/13/23 [facility] [address], [place] [address] Allergies, Adverse Reactions, Alerts Substance Reaction Severity Status metFORMIN GI intolerance Active Immunizations Given and Recorded Vaccine Date Status Refusal Reason SARS-CoV-2 (COVID-19) mRNA BNT-162b2 vac 1, 2 01/24/21 Given SARS-CoV-2 (COVID-19) mRNA BNT-162b2 vac 01/03/21 Given tetanus/diphtheria/pertussis, acel(Tdap) 01/25/17 Given 1? Unknown: Resend to [facility]. 2Result Comment: lot was [id number] Medications diclofenac 1% topical gel 1 application, Topically, 4 times a day, PRN Pain , Mild, # 100 Gm, 4 Refills, Maintenance, 01/05/22 11:45:00 EDT, Gel, [facility]/pharmacy #[id number], Partial fill upon patient request if the prescription is for a schedule II opioid drug., 153, cm, 01/05/22 11:0... Start Date: 01/05/22 Status: Ordered ferrous sulfate 325 mg oral enteric coated tablet 325 mg, 1, tablet, By Mouth, Every Wednesday, Wednesday and Wednesday, # 39 tablet, Refills 3, Tot. Refills 3, Maintenance, 05/20/23 10:58:00 EST, Route to Pharmacy Electronically, [facility]/pharmacy #[id number], Partial fill upon patient request if the prescription is... Start Date: 05/20/23 Status: Ordered FLUoxetine (Eqv-Prozac) 20 mg oral tablet 3 tablet, By Mouth, Daily, # 270 tablet, 0 Refills, Maintenance, 06/30/23 17:05:00 EST, [facility], 153, cm, 05/20/23 10:37:00 EST, Height Start Date: 06/30/23 Stop Date: 07/30/23 Status: Ordered Freestyle Lite Lancets See Instructions, [...] Refills, Maintenance, 05/02/23 13:38:00 EST, [facility], 153, cm, 11/13/22 9:48:00 EDT, Height Start Date: 05/02/23 Status: Ordered Metamucil 3.4 gm/5.2 gm oral powder for reconstitution = 1.7 Gm, By Mouth, Daily, PRN as needed for constipation, # 283 Gm, 11 Refills, Maintenance, 11/13/22 10:18:00 EDT, REC Powder, [facility]/pharmacy #[id number], Partial fill upon patient request if the prescription is for a schedule II opioid drug., 153, cm, ... Start Date: 11/13/22 Status: Ordered olmesartan 5 mg oral tablet 1 tablet, By Mouth, Daily, # 90 tablet, 1 Refills, Maintenance, 06/13/23 9:43:00 EST, [facility] STORE 41125, 153, cm, 05/20/23 10:37:00 EST, Height Start Date: 06/13/23 Status: Ordered Trulicity Pen 1.5 mg/0.5 mL subcutaneous solution See Instructions, INJECT 1 PEN SUBCUTANEOUSLY ONCE WEEKLY, ROTATE INJECTION SITES, # 2 Unknown, 5 Refills, Maintenance, 05/02/23 13:38:00 EST, [facility] STORE 73719, 153, cm, 11/13/22 9:48:00 EDT, Height Start Date: 05/02/23 Status: Ordered Vitamin C 500 mg oral tablet 1 tablet = 500 mg, By Mouth, Daily, # 90 tablet, 3 Refills, Maintenance, 10/19/22 18:14:00 EDT, Tablet, [facility]/pharmacy #[id number], Partial fill upon patient request [...] Team Personnel Name: Denisse Acevedo MD Position: [facility] Physician - Primary Care Member Role: PCP Address: Address: [address] [place] [address]- Care Team Related Persons Name: SHUKRIINDERJIT IVORY Address: home [address] [place] [address] Name: HITESH WATT Address: [place] [address] Name: STATES, NO ONE Name: CHELSIE FRY Address: [place] [address]
--- OUTSIDE RECORDS SUMMARY | 2023-12-17 08:15 | XMS_ITS | Continuity of Care Document ---
Author Organization [facility] Address [address] [place] [address]- Care Team Providers Care Electric Train Driver Name Role Phone Curtis ANTHONY, Denisse Kellogg Primary Care Physician [phone] Encounter [facility] Date(s): 04/12/23 - 05/12/[address] [address]- Allergies, Adverse Reactions, Alerts Substance Reaction Severity Status metFORMIN GI intolerance Active Immunizations Given and Recorded Vaccine Date Status Refusal Reason SARS-CoV-2 (COVID-19) mRNA BNT-162b2 vac 1, 2 01/24/21 Given SARS-CoV-2 (COVID-19) mRNA BNT-162b2 vac 01/03/21 Given tetanus/diphtheria/pertussis, acel(Tdap) 01/25/17 Given 1? Unknown: Resend to [facility]. 2Result Comment: lot was [id number] Medications diclofenac 1% topical gel 1 application, Topically, 4 times a day, PRN Pain , Mild, # 100 Gm, 4 Refills, Maintenance, 01/05/22 11:45:00 EDT, Gel, [facility]/pharmacy #[id number], Partial fill upon patient request if the prescription is for a schedule II opioid drug., 153, cm, 01/05/22 11:0... Start Date: 01/05/22 Status: Ordered ferrous sulfate 325 mg oral enteric coated tablet 325 mg, 1, tablet, By Mouth, Every Wednesday, Wednesday and Wednesday, # 45 tablet, Refills 3, Tot. Refills 3, Maintenance, 11/13/22 10:26:00 EDT, Route to Pharmacy Electronically, [facility]/pharmacy #[id number], Partial fill upon patient request if the prescription is... Start Date: 11/13/22 Status: Ordered FLUoxetine 40 mg oral capsule 1 capsule = 40 mg, By Mouth, Daily, # 30 capsule, 4 Refills, Maintenance, 09/10/22 19:48:00 EDT, Capsule, [id number], Partial fill upon [...] tablet, 1 Refills, Maintenance, 05/02/23 13:38:00 EST, [facility] STORE 32849, 153, cm, 11/13/22 9:48:00 EDT, Height Start Date: 05/02/23 Status: Ordered Metamucil 3.4 gm/5.2 gm oral powder for reconstitution = 1.7 Gm, By Mouth, Daily, PRN as needed for constipation, # 283 Gm, 11 Refills, Maintenance, 11/13/22 10:18:00 EDT, REC Powder, [facility]/pharmacy #[id number], Partial fill upon patient request if the prescription is for a schedule II opioid drug., 153, cm, 0... Start Date: 11/13/22 Status: Ordered olmesartan 5 mg oral tablet 1 tablet = 5 mg, By Mouth, Daily, # 30 tablet, 5 Refills, Maintenance, 12/09/22 18:05:00 EDT, Tablet, [facility]/pharmacy #[id number], Partial fill upon patient request if the prescription is for a schedule II opioid drug., 153, cm, 11/13/22 9:48:00 EDT, Height Start Date: 12/09/22 Status: Ordered Trulicity Pen 1.5 mg/0.5 mL subcutaneous solution See Instructions, INJECT 1 PEN SUBCUTANEOUSLY ONCE WEEKLY, ROTATE INJECTION SITES, # 2 Unknown, 5 Refills, Maintenance, 05/02/23 13:38:00 EST, [facility] STORE 59526, 153, cm, 11/13/22 9:48:00 EDT, Height Start Date: 05/02/23 Status: Ordered Vitamin C 500 mg oral tablet 1 tablet = 500 mg, By Mouth, Daily, # 90 tablet, 3 Refills, Maintenance, 10/19/22 18:14:00 EDT, Tablet, [facility]/pharmacy #[id number], Partial fill upon patient request [...] Team Personnel Name: Denisse Acevedo MD Position: [facility] Physician - Primary Care Member Role: PCP Address: Address: [address] [place] [address]- Care Team Related Persons Name: INDERJIT WATT Address: home [address] [place] [address] Name: HITESH WATT Address: [place] [address] Name: PT STATES, NO ONE Name: CHELSIE FRY Address: [place] [address]
--- OUTSIDE RECORDS SUMMARY | 2023-12-17 08:15 | XMS_ITS | Continuity of Care Document ---
Author Organization [facility] Address [address] [place] [address]- Care Team Providers Care Transportation Assistant Name Role Phone Denisse Acevedo MD Primary Care Physician Encounter [facility] Date(s): 10/28/23 - 11/27/23 [facility] [address] [place] [phone] Allergies, Adverse Reactions, Alerts Substance Reaction Severity Status metFORMIN GI intolerance Active Immunizations Given and Recorded Vaccine Date Status Refusal Reason SARS-CoV-2 (COVID-19) mRNA BNT-162b2 vac 1, 2 01/24/21 Given SARS-CoV-2 (COVID-19) mRNA BNT-162b2 vac 01/03/21 Given tetanus/diphtheria/pertussis, acel(Tdap) 01/25/17 Given 1? Unknown: Resend to [facility]. 2Result Comment: lot was [id number] Medications Blood Pressure Monitor See Instructions, # [...] tablet, 1 Refills, Maintenance, 11/17/23 11:13:00 EDT, [facility] STORE 21794, 90, TAKE 1 TABLET BY MOUTH EVERY DAY, 153, cm, 09/30/23 18:13:00 EDT, Height, 100, kg, 08/25/2417:28:00 EDT, Dry Weight Start Date: 11/17/23 Status: Ordered diclofenac 1% topical gel 1 application, Topically, 4 times a day, PRN Pain , Mild, # 100 Gm, 4 Refills, Maintenance, 01/05/22 11:45:00 EDT, Gel, [facility]/pharmacy #[id number], Partial fill upon patient request if the prescription is for a schedule II opioid drug., 153, cm, 01/05/22 11:0... Start Date: 01/05/22 Status: Ordered ferrous sulfate 325 mg oral enteric coated tablet 325 mg, 1, tablet, By Mouth, Every Wednesday, Wednesday and Wednesday, # 39 tablet, Refills 3, Tot. Refills 3, Maintenance, 05/20/23 10:58:00 EST, Route to Pharmacy Electronically, [facility]/pharmacy #[id number], Partial fill upon patient [...] Refills, Maintenance, 10/28/23 15:44:00 EDT, [id number], 153, cm, 09/30/23 18:13:00 EDT, Height, 100, kg, 08/26/23 18:28:00 EDT, Dry Weight Start Date: 10/28/23 Status: Ordered Metamucil 3.4 gm/5.2 gm oral powder for reconstitution = 1.7 Gm, By Mouth, Daily, PRN as needed for constipation, # 283 Gm, 11 Refills, Maintenance, 11/13/22 10:18:00 EDT, REC Powder, [facility]/pharmacy #[id number], Partial fill upon patient request if the prescription is for a schedule II opioid drug., 153, cm, ... Start Date: 11/13/22 Status: Ordered olmesartan 5 mg oral tablet 1 tablet, By Mouth, Daily, # 90 tablet, 1 Refills, Maintenance, 06/13/23 9:43:00 EST, [facility] STORE 53116, 153, cm, 05/20/23 10:37:00 EST, Height Start Date: 06/13/23 Status: Ordered tirzepatide 5 mg/0.5 mL subcutaneous solution = 5 mg, Subcutaneous Injection, Every week, rotate injection sites; use Tirzepatide 0.25mg weekly x4 weeks then increase dose, # 4 each, 4 Refills, Maintenance, 09/30/23 18:26:00 EDT, Solution, [facility], Partial fill upon patient re... Start Date: 09/30/23 Status: Ordered Vitamin C 500 mg oral tablet 1 tablet = 500 mg, By Mouth, Daily, # 90 tablet, 3 Refills, Maintenance, 10/19/22 18:14:00 EDT, Tablet, [facility]/pharmacy #[id number], Partial fill upon patient [...] Team Personnel Name: Denisse Acevedo MD Position: [facility] Physician - Primary Care Member Role: PCP Address: Address: [address] [place] [address]- Care Team Related Persons Name: INDERJIT WATT Address: home [address] [place] [address] Name: HITESH WATT Address: [place] [address] Name: PT STATES, NO ONE Name: CHELSIE FRY Address: [place] [address]
--- OUTSIDE RECORDS SUMMARY | 2023-12-17 08:15 | XMS_ITS | Continuity of Care Document ---
Author Organization [facility] Address [address] [place] [address]- Care Team Providers Care Recruiting Assistant Name Role Phone Denisse Acevedo MD Primary Care Physician Encounter [facility] [place] Date(s): 08/19/23 - 12/11/23 [facility] [address] [place], [place] [phone] Attending Physician: Denisse Acevedo MD Admitting Physician: Denisse Acevedo MD Allergies, Adverse Reactions, Alerts Substance Reaction Severity Status metFORMIN GI intolerance Active Immunizations Given and Recorded Vaccine Date Status Refusal Reason SARS-CoV-2 (COVID-19) mRNA BNT-162b2 vac 1, 2 01/24/21 Given SARS-CoV-2 (COVID-19) mRNA BNT-162b2 vac 01/03/21 Given tetanus/diphtheria/pertussis, acel(Tdap) 01/25/17 Given 1? Unknown: Resend to [facility]. 2Result Comment: lot was [id number] Medications Blood Pressure Monitor See Instructions, # [...] tablet, 1 Refills, Maintenance, 11/17/23 11:13:00 EDT, [facility] STORE 48497, 90, TAKE 1 TABLET BY MOUTH EVERY DAY, 153, cm, 09/30/23 18:13:00 EDT, Height, 100, kg, 08/25/2417:28:00 EDT, Dry Weight Start Date: 11/17/23 Status: Ordered diclofenac 1% topical gel 1 application, Topically, 4 times a day, PRN Pain , Mild, # 100 Gm, 4 Refills, Maintenance, 01/05/22 11:45:00 EDT, Gel, [facility]/pharmacy #[id number], Partial fill upon patient request if the prescription is for a schedule II opioid drug., 153, cm, 01/05/22 11:0... Start Date: 01/05/22 Status: Ordered ferrous sulfate 325 mg oral enteric coated tablet 325 mg, 1, tablet, By Mouth, Every Wednesday, Wednesday and Wednesday, # 39 tablet, Refills 3, Tot. Refills 3, Maintenance, 05/20/23 10:58:00 EST, Route to Pharmacy Electronically, [facility]/pharmacy #[id number], Partial fill upon patient request if [...] tablet, 1 Refills, Maintenance, 10/28/23 15:44:00 EDT, [facility] STORE 24566, 153, cm, 09/30/23 18:13:00 EDT, Height, 100, kg, 08/26/23 18:28:00 EDT, Dry Weight Start Date: 10/28/23 Status: Ordered Metamucil 3.4 gm/5.2 gm oral powder for reconstitution = 1.7 Gm, By Mouth, Daily, PRN as needed for constipation, # 283 Gm, 11 Refills, Maintenance, 11/13/22 10:18:00 EDT, REC Powder, [facility]/pharmacy #[id number], Partial fill upon patient request if the prescription is for a schedule II opioid drug., 153, cm, ... Start Date: 11/13/22 Status: Ordered olmesartan 5 mg oral tablet 1 tablet, By Mouth, Daily, # 90 tablet, 1 Refills, Maintenance, 06/13/23 9:43:00 EST, [facility] STORE 83137, 153, cm, 05/20/23 10:37:00 EST, Height Start Date: 06/13/23 Status: Ordered tirzepatide 5 mg/0.5 mL subcutaneous solution = 5 mg, Subcutaneous Injection, Every week, rotate injection sites; use Tirzepatide 0.25mg weekly x4 weeks then increase dose, # 4 each, 4 Refills, Maintenance, 09/30/23 18:26:00 EDT, Solution, [facility], Partial fill upon patient re... Start Date: 09/30/23 Status: Ordered Vitamin C 500 mg oral tablet 1 tablet = 500 mg, By Mouth, Daily, # 90 tablet, 3 Refills, Maintenance, 10/19/22 18:14:00 EDT, Tablet, [facility]/pharmacy #[id number], Partial fill upon patient request if [...] Personnel Name: Curtis ANTHONY, Denisse Kellogg Position: [facility] Physician - Primary Care Member Role: PCP Address: Address: [address] [place] [address]- Care Team Related Persons Name: INDERJIT WATT Address: home [address] [place] [address] Name: HITESH WATT Address: [place] [address] Name: PT STATES, NO ONE Name: CHELSIE FRY Address: [place] [address]
--- OUTSIDE RECORDS SUMMARY | 2023-12-17 08:15 | XMS_ITS | Continuity of Care Document ---
Author Organization [facility] Address [address] [place] [address]- Care Team Providers Care Motion Study Technician Name Role Phone Curtis ANTHONY, Denisse Kellogg Primary Care Physician [facility]counter [facility] Date(s): 02/05/22 - 03/07/22 [facility] [address] [place] [address]- Attending Physician: Sanju James Admitting Physician: Sanju James Referring Physician: AdmtrSanju Allergies, Adverse Reactions, Alerts Substance Reaction Severity Status metFORMIN GI intolerance Active Immunizations Given and Recorded Vaccine Date Status Refusal Reason SARS-CoV-2 (COVID-19) mRNA BNT-162b2 vac 1, 2 01/24/21 Given SARS-CoV-2 (COVID-19) mRNA BNT-162b2 vac 01/03/21 Given tetanus/diphtheria/pertussis, acel(Tdap) 01/25/17 Given 1? Unknown: Resend to [facility]. 2Result Comment: lot was [id number] Medications diclofenac 1% topical gel 1 application, [...] 13:20:00 EDT, [id number] fill upon patient request if [...] 0 Refills, Maintenance, 03/03/21 16:43:00 EDT, Tablet, [facility]/pharmacy #[id number], Partial fill upon patient [...] Personnel Name: Curtis ANTHONY, Denisse Kellogg Address: [address] [place] [address], -[facility] [address]
--- OUTSIDE RECORDS SUMMARY | 2023-12-17 08:15 | XMS_ITS | Continuity of Care Document ---
Author Organization [facility] Address [address] [place] [address]- Care Team Providers Care Disaster Recovery Analyst Name Role Phone Abebe SMITH, Chelle Primary Care Physician Unavailab le Encounter [facility] Date(s): 02/22/20 - 03/23/[address] [address]- [facility] Allergies, Adverse Reactions, Alerts Substance Reaction Severity [...]
--- OUTSIDE RECORDS SUMMARY | 2023-12-17 08:15 | XMS_ITS | Continuity of Care Document ---
Author Organization [facility] Address [address] [place] [address]- Care Team Providers Care Insurance Healthcare Consultant Name Role Phone Curtis ANTHONY, Denisse Kellogg Primary Care Physician [place] [facility] Date(s): 09/15/21 - 11/19/[address] [address] Attending Physician: Not on Staff, Attending MD Allergies, Adverse Reactions, Alerts Substance Reaction Severity Status metFORMIN GI intolerance Active Immunizations Given and Recorded Vaccine Date Status Refusal Reason SARS-CoV-2 (COVID-19) mRNA BNT-162b2 vac 1, 2 01/24/21 Given SARS-CoV-2 (COVID-19) mRNA BNT-162b2 vac 01/03/21 Given tetanus/diphtheria/pertussis, acel(Tdap) 01/25/17 Given 1? Unknown: Resend to [facility]. 2Result Comment: lot was [id number] Medications acetaminophen 325 mg oral tablet 650 mg, 2, tablet, By Mouth, 3 times a day, PRN, # 180 tablet, Refills 11, Tot. Refills 11, Maintenance, for pain, 03/03/21 16:43:00 EDT, Route to Pharmacy Electronically, [facility]/pharmacy #[id number], Partialfill upon patient request if the prescription is fo... Start Date: 03/03/21 Status: Ordered ferrous sulfate 325 mg oral enteric coated tablet 325 mg, 1, tablet, By Mouth, Daily, for anemia, # 30 tablet, Refills 11, Tot. Refills 11, Maintenance, 01/02/21 15:55:00 EDT, Route to Pharmacy Electronically, [id number], [...] 1 Refills, [facility] STORE [id number], 153, cm, 10/13/21 14:57:00 EDT,Height Start Date: [...]
--- OUTSIDE RECORDS SUMMARY | 2023-12-17 08:15 | XMS_ITS | Continuity of Care Document ---
Author Organization [facility] Address [address] [place] [address]- Care Team Providers Care Wrecking Mechanic Name Role Phone Denisse Acevedo MD Primary Care Physician [place] [facility] [place](s): 02/10/23 - 03/12/23 [facility] [address] [place], [place] [address] Allergies, Adverse Reactions, Alerts Substance Reaction Severity Status metFORMIN GI intolerance Active Immunizations Given and Recorded Vaccine Date Status Refusal Reason SARS-CoV-2 (COVID-19) mRNA BNT-162b2 vac 1, 2 01/24/21 Given SARS-CoV-2 (COVID-19) mRNA BNT-162b2 vac 01/03/21 Given tetanus/diphtheria/pertussis, acel(Tdap) 01/25/17 Given 1? Unknown: Resend to [facility]. 2Result Comment: lot was [id number] Medications diclofenac 1% topical gel 1 application, Topically, 4 times a day, PRN Pain , Mild, # 100 Gm, 4 Refills, Maintenance, 01/05/22 11:45:00 EDT, Gel, [id number], Partial fill upon patient request if the prescription is for a schedule II opioid drug., 153, cm, 01/05/22 11:0... Start Date: 01/05/22 Status: Ordered dulaglutide 0.75 mg/0.5 mL subcutaneous solution 0.5 mL = 0.75 mg, Subcutaneous Injection, Every week, rotate injection sites, # 2 mL, 4 Refills, Maintenance, 09/10/22 19:46:00 EDT, Solution, [id number], Partial fill upon patient request ifthe prescription is for a schedule II opioid drug.,... Start Date: 09/10/22 Status: Ordered dulaglutide 1.5 mg/0.5 mL subcutaneous solution 0.5 mL = 1.5 mg, Subcutaneous Injection, Every week, rotate injection sites; increase dose to Dulaglutide 1.5mg weekly, # 2.5 mL, 4 Refills, Maintenance, 11/13/22 10:38:00 EDT, Solution, [facility]/pharmacy#[id number], Partial fill upon patient request if the pr... Start Date: 11/13/22 Status: Ordered ferrous sulfate 325 mg oral enteric coated tablet 325 mg, 1, tablet, By Mouth, Every Wednesday, Wednesday and Wednesday, # 45 tablet, Refills 3, Tot. Refills 3, Maintenance, 11/13/22 10:26:00 EDT, Route to Pharmacy Electronically, [facility]/pharmacy #[id number], Partial fill upon patient request if the prescription is... Start Date: 11/13/22 Status: Ordered FLUoxetine 40 mg oral capsule 1 capsule = 40 mg, By Mouth, Daily, # 30 capsule, 4 Refills, Maintenance, 09/10/22 19:48:00 EDT, Capsule, [facility]/pharmacy #[id number], Partial fill upon patient request if [...] is for... Start Date: 04/23/22 Status: Ordered Metamucil 3.4 gm/5.2 gm oral [...] EDT, Height Start Date: 12/09/22 Status: Ordered Vitamin C 500 mg oral [...] Team Personnel Name: Denisse Acevedo MD Position: [facility] Physician - Primary Care Member Role: PCP Address: Address: [address] [place] [address]- Care Team Related Persons Name: INDERJIT WATT Address: home [address] [place] [address] Name: HITESH WATT Address: [place] [address] Name: PT STATES, NO ONE Name: CHELSIE FRY Address: [place] [address]
--- OUTSIDE RECORDS SUMMARY | 2023-12-17 08:15 | XMS_ITS | Continuity of Care Document ---
Author Organization [facility] Address [address] [place] [address]- Care Team Providers Care Resident Care Coordinator Name Role Phone Denisse Acevedo MD Primary Care Physician Encounter [facility] Date(s): 11/10/23 - 12/10/23 [facility] [address] [place] [phone] Allergies, Adverse Reactions, Alerts Substance Reaction Severity Status metFORMIN GI intolerance Active Immunizations Given and Recorded Vaccine Date Status Refusal Reason SARS-CoV-2 (COVID-19) mRNA BNT-162b2 vac 1, 2 01/24/21 Given SARS-CoV-2 (COVID-19) mRNA BNT-162b2 vac 01/03/21 Given tetanus/diphtheria/pertussis, acel(Tdap) 01/25/17 Given 1? Unknown: Resend to [facility]. 2Result Comment: lot was [id number] Medications Blood Pressure Monitor See Instructions, # [...] tablet, 1 Refills, Maintenance, 11/17/23 11:13:00 EDT, [facility] STORE [id number], 90, TAKE 1 TABLET BY MOUTH EVERY DAY, 153, cm, 09/30/23 18:13:00 EDT, Height, 100, kg, 08/25/2417:28:00 EDT, Dry Weight Start Date: 11/17/23 Status: Ordered diclofenac 1% topical gel 1 application, Topically, 4 times a day, PRN Pain , Mild, # 100 Gm, 4 Refills, Maintenance, 01/05/22 11:45:00 EDT, Gel, [facility]/pharmacy #[id number], Partial fill upon [...] 10:58:00 EST, Route to Pharmacy Electronically, [facility]/pharmacy #[id number], Partial fill upon [...] Refills, Maintenance, 10/28/23 15:44:00 EDT, [id number], 153, cm, 09/30/23 18:13:00 EDT, Height, 100, kg, 08/26/23 18:28:00 EDT, Dry Weight Start Date: 10/28/23 Status: Ordered Metamucil 3.4 gm/5.2 gm oral powder for reconstitution = 1.7 Gm, By Mouth, Daily, PRN as needed for constipation, # 283 Gm, 11 Refills, Maintenance, 11/13/22 10:18:00 EDT, REC Powder, [facility]/pharmacy #[id number], Partial fill upon patient request if the prescription is for a schedule II opioid drug., 153, cm, ... Start Date: 11/13/22 Status: Ordered olmesartan 5 mg oral tablet 1 tablet, By Mouth, Daily, # 90 tablet, 1 Refills, Maintenance, 06/13/23 9:43:00 EST, [facility] ST[facility] 20412, 153, cm, 05/20/23 10:37:00 EST, Height Start Date: 06/13/23 Status: Ordered tirzepatide 5 mg/0.5 mL subcutaneous solution = 5 mg, Subcutaneous Injection, Every week, rotate injection sites; use Tirzepatide 0.25mg weekly x4 weeks then increase dose, # 4 each, 4 Refills, Maintenance, 09/30/23 18:26:00 EDT, Solution, [facility], Partial fill upon patient re... Start Date: 09/30/23 Status: Ordered Vitamin C 500 mg oral tablet 1 tablet = 500 mg, By Mouth, Daily, # 90 tablet, 3 Refills, Maintenance, 10/19/22 18:14:00 EDT, Tablet, [facility]/pharmacy #[id number], Partial fill upon [...] Team Personnel Name: Denisse Acevedo MD Position: [facility] Physician - Primary Care Member Role: PCP Address: Address: [address] [place] [address]- Care Team Related Persons Name: INDERJIT WATT Address: home [address] [place] [address] Name: HITESH WATT Address: [place] [address] Name: PT STATES, NO ONE Name: CHELSIE FRY Address: [place] [address]
--- OUTSIDE RECORDS SUMMARY | 2023-12-17 08:15 | XMS_ITS | Continuity of Care Document ---
Author Organization 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
--- OUTSIDE RECORDS SUMMARY | 2023-12-17 08:15 | XMS_ITS | Continuity of Care Document ---
Author Organization [facility] Address [address] [place] [address]- Care Team Providers Care Archives Technician Name Role Phone Curtis ANTHONY, Denisse Kellogg Primary Care Physician [phone] Encounter [facility] Date(s): 04/14/23 - 05/14/[address] [address] Attending Physician: Admtr, Sanju Allergies, Adverse Reactions, Alerts Substance Reaction Severity Status metFORMIN GI intolerance Active Immunizations Given and Recorded Vaccine Date Status Refusal Reason SARS-CoV-2 (COVID-19) mRNA BNT-162b2 vac 1, 2 01/24/21 Given SARS-CoV-2 (COVID-19) mRNA BNT-162b2 vac 01/03/21 Given tetanus/diphtheria/pertussis, acel(Tdap) 01/25/17 Given 1? Unknown: Resend to [facility]. 2Result Comment: lot was [id number] Medications diclofenac 1% topical gel 1 application, Topically, 4 times a day, PRN Pain , Mild, # 100 Gm, 4 Refills, Maintenance, 01/05/22 11:45:00 EDT, [facility], [id number], Partial fill upon patient request if the prescription is for a schedule II opioid drug., 153, cm, 01/05/22 11:0... Start Date: 01/05/22 Status: Ordered ferrous sulfate 325 mg oral enteric coated tablet 325 mg, 1, tablet, By Mouth, Every Wednesday, Wednesday and Wednesday, # 45 tablet, Refills 3, Tot. Refills 3, Maintenance, 11/13/22 10:26:00 EDT, Route to Pharmacy Electronically, [id number], Partial fill upon patient request if the prescription is... Start Date: 11/13/22 Status: Ordered FLUoxetine 40 mg oral capsule 1 capsule = 40 mg, By Mouth, Daily, # 30 capsule, 4 Refills, Maintenance, 09/10/22 19:48:00 EDT, Capsule, [facility]/pharmacy #[id number], Partial fill upon patient request if [...] tablet, 1 Refills, Maintenance, 05/02/23 13:38:00 EST, [facility] STORE [id number], 153, cm, 11/13/22 9:48:00 EDT, Height Start Date: 05/02/23 Status: Ordered Metamucil 3.4 gm/5.2 gm oral powder for reconstitution = 1.7 Gm, By Mouth, Daily, PRN as needed for constipation, # 283 Gm, 11 Refills, Maintenance, 11/13/22 10:18:00 EDT, REC Powder, [facility]/pharmacy #[id number], Partial fill upon patient request if [...] Unknown, 5 Refills, Maintenance, 05/02/23 13:38:00 EST, [facility], 153, cm, 11/13/22 9:48:00 EDT, Height Start Date: 05/02/23 Status: Ordered Vitamin C 500 mg oral tablet 1 tablet = 500 mg, By Mouth, Daily, # 90 tablet, 3 Refills, Maintenance, 10/19/22 18:14:00 EDT, Tablet, [facility]/pharmacy #[id number], Partial fill upon patient request if [...] Team Personnel Name: Denisse Acevedo MD Position: [facility] Physician - Primary Care Member Role: PCP Address: Address: [address] [place] [address]- Care Team Related Persons Name: INDERJIT WATT Address: home [address] [place] [address] Name: HITESH WATT Address: [place] [address] Name: PT STATES, NO ONE Name: CHELSIE FRY Address: [place] [address]
--- OUTSIDE RECORDS SUMMARY | 2023-12-17 08:15 | XMS_ITS | Continuity of Care Document ---
Author Organization [facility] Address [address] [place] [address]- Care Team Providers Care Stunt Driver Name Role Phone Denisse Acevedo MD Primary Care Physician Encounter [facility] Date(s): 09/25/22 - 11/18/22 [facility] [address] [place], [place] [address] Encounter Diagnosis Iron deficiency anemia(Discharge Diagnosis) - 10/19/22 Diabetes(Discharge Diagnosis) - 10/19/22 Thrombocytosis(Discharge Diagnosis) - 10/19/22 Attending Physician: Not on Staff, Attending MD Allergies, Adverse Reactions, Alerts Substance Reaction Severity Status metFORMIN GI intolerance Active Immunizations Given and Recorded Vaccine Date Status Refusal Reason SARS-CoV-2 (COVID-19) mRNA BNT-162b2 vac 1, 2 01/24/21 Given SARS-CoV-2 (COVID-19) mRNA BNT-162b2 vac 01/03/21 Given tetanus/diphtheria/pertussis, acel(Tdap) 01/25/17 Given 1? Unknown: Resend to [facility]. 2Result Comment: lot was [id number] Medications diclofenac 1% topical gel 1 application, Topically, 4 times a day, PRN Pain , Mild, # 100 Gm, 4 Refills, Maintenance, 01/05/22 11:45:00 EDT, [facility], [id number], Partial fill upon patient request if the prescription is for a schedule II opioid drug., 153, cm, 01/05/22 11:0... Start Date: 01/05/22 Status: Ordered dulaglutide 0.75 mg/0.5 mL subcutaneous solution 0.5 mL = 0.75 mg, Subcutaneous Injection, Every week, rotate injection sites, # 2 mL, 4 Refills, Maintenance, 03/30/23 19:46:00 EDT, Solution, [facility]/pharmacy #[id number], Partial fill upon patient request ifthe prescription is for a schedule II opioid drug.,... Start Date: 09/10/22 Status: Ordered dulaglutide 1.5 mg/0.5 mL subcutaneous solution 0.5 mL = 1.5 mg, Subcutaneous Injection, Every week, rotate injection sites; increase dose to Dulaglutide 1.5mg weekly, # 2.5 mL, 4 Refills, Maintenance, 11/13/22 10:38:00 EDT, Solution, [facility]/pharmacy#[id number], Partial fill upon patient request if the pr... Start Date: 11/13/22 Status: Ordered ferrous sulfate 325 mg oral enteric coated tablet 325 mg, 1, tablet, By Mouth, Every Wednesday, Wednesday and Wednesday, # 45 tablet, Refills 3, Tot. Refills 3, Maintenance, 11/13/22 10:26:00 EDT, Route to Pharmacy Electronically, [facility]/pharmacy #[id number], Partial fill upon patient request if the prescription is... Start Date: 11/13/22 Status: Ordered FLUoxetine 40 mg oral capsule 1 capsule = 40 mg, By Mouth, Daily, # 30 capsule, 4 Refills, Maintenance, 09/10/22 19:48:00 EDT, Capsule, [facility]/pharmacy #[id number], Partial fill [...] 0 Refills, Maintenance, 03/03/21 16:43:00 EDT, Tablet, [facility]/pharmacy #[id number], [...] mg, By Mouth, Daily, # 30 tablet, 0 Refills, Maintenance, 11/13/22 10:38:00 EDT, Tablet, [id number], Partial fill upon patient request if the prescription is for a schedule II opioid drug., 153, cm, 11/13/22 9:48:00 EDT, Height Start Date: 11/13/22 Status: Ordered Vitamin C 500 mg oral tablet 1 tablet = 500 mg, By Mouth, Daily, # 90 tablet, 3 Refills, Maintenance, 10/19/22 18:14:00 EDT, Tablet, [id number], Partial fill upon patient request if the prescription is for a schedule II opioid drug., 153, cm, 09/10/22 18:41:00 EDT, Height Start Date: 10/19/22 Status: Ordered Vitamin D3 1000 intl units [...] obesity Confirmed Active Tobacco use Confirmed Active Diagnosis Diagnosis Type Effective Dates Health Status Clinical Service Informant Iron deficiency anemia Discharge Diagnosis 10/19/22 Diabetes Discharge Diagnosis 10/19/22 Thrombocytosis Discharge Diagnosis 10/19/22 Social History Social History Type Response Tobacco Use: 4 or less cigar ettes(less than 1/4 pack)/day in last 30 days. Other: 5 ciggs / day. Type: Cigarettes. Sex Female Patient Care team information Care Team Personnel Name: Denisse Acevedo MD Position: [facility] Physician - Primary Care Member Role: PCP Address: Address: [address] [place] [address], -[facility] [place] [address]- Care Team Related Persons Name: INDERJIT WATT Address: home [address] [place] [address] Name: HITESH WATT Address: [place] [address] Name: PT STATES, NO ONE Name: CHELSIE FRY Address: [place] [address]
--- OUTSIDE RECORDS SUMMARY | 2023-12-17 08:15 | XMS_ITS | Continuity of Care Document ---
Author Organization [facility] Address [address] [place] [address]- Care Team Providers Care Lift Manager Name Role Phone Denisse Acevedo MD Primary Care Physician Encounter [facility] [place] [place] Date(s): 09/16/22 - 10/16/22 [facility] [address] [place] [id number] Allergies, Adverse Reactions, Alerts Substance Reaction Severity Status metFORMIN GI intolerance Active Immunizations Given and Recorded Vaccine Date Status Refusal Reason SARS-CoV-2 (COVID-19) mRNA BNT-162b2 vac 1, 2 01/24/21 Given SARS-CoV-2 (COVID-19) mRNA BNT-162b2 vac 01/03/21 Given tetanus/diphtheria/pertussis, acel(Tdap) 01/25/17 Given 1? Unknown: Resend to [facility]. 2Result Comment: lot was [id number] Medications diclofenac 1% topical gel 1 application, [...] opioid drug.,... Start Date: 09/10/22 Status: Ordered ferrous gluconate 324 mg oral tablet 1 tablet = 324 mg, By Mouth, Every other day, for anemia;, # 15 tablet, 11 Refills, Maintenance, 05/01/22 15:17:00 EST, Tablet, [facility]/pharmacy #[id number], Change iron formulation, 153, cm, 04/14/22 8:08:00 EDT, Height Start Date: 05/01/22 Status: Ordered FLUoxetine 40 mg oral capsule 1 capsule = 40 mg, By Mouth, Daily, # 30 capsule, 4 Refills, Maintenance, 09/10/22 19:48:00 EDT, Capsule, [facility]/pharmacy #[id number], Partial fill upon patient request if [...] Mouth, Daily, PRN as needed for constipation, start 1/2 scoop dialy x 3 days then 1 scoop, # 283 Gm, 11 Refills, Maintenance, 09/10/22 19:52:00 EDT, REC Powder, [id number], Partial fill upon patient request if the prescription is... Start Date: 09/10/22 Status: Ordered Vitamin D3 1000 intl units [...] Diabetes Confirmed Active Graves' ophthalmopathy Confirmed Active Hypothyroid Confirmed Active Iron deficiency [...] Team Personnel Name: Denisse Acevedo MD Position: [facility] Primary Care Physician Member Role: PCP Address: Address: [address] [place] [address], [place] [address]- Care Team Related Persons Name: INDERJIT WATT Address: home [address] [place] [address] Name: HITESH WATT Address: [place] [address] Name: STATES, NO ONE Name: CHELSIE FRY Address: [place] [address]
--- OUTSIDE RECORDS SUMMARY | 2023-12-17 08:15 | XMS_ITS | Continuity of Care Document ---
Author Organization [facility] Address [address] [place] [address]- Care Team Providers Care Hunting And Fishing Guide Name Role Phone Curtis ANTHONY, Denisse Kellogg Primary Care Physician [phone] Encounter [facility] Date(s): 03/03/21 - 04/02/21 [facility] [address] [place] [address]- Attending Physician: Sanju James Admitting Physician: AdmSanju rubio Referring Physician: AdmtrSanju Allergies, Adverse Reactions, Alerts Substance Reaction Severity Status metFORMIN GI intolerance Active Immunizations Given and Recorded Vaccine Date Status Refusal Reason SARS-CoV-2 (COVID-19) mRNA BNT-162b2 vac 1 01/24/21 Given SARS-CoV-2 (COVID-19) mRNA BNT-162b2 vac 01/03/21 Given tetanus/diphtheria/pertussis, acel(Tdap) 01/25/17 Given 1Result Comment: lot was [id number] Medications acetaminophen 325 mg oral tablet 650 mg, 2, tablet, By Mouth, 3 times a day, PRN, # 180 tablet, Refills 11, Tot. Refills 11, Maintenance, for pain, 03/03/21 16:43:00 EDT, Route to Pharmacy Electronically, [facility]/pharmacy #[id number], Partialfill upon patient request if the prescription is fo... Start Date: 03/03/21 Status: Ordered ferrous sulfate 325 mg oral enteric coated tablet 325 mg, 1, tablet, By Mouth, Daily, for anemia, # 30 tablet, Refills 11, Tot. Refills 11, Maintenance, 01/02/21 15:55:00 EDT, Route to Pharmacy Electronically, [facility]/pharmacy #[id number], Partial fill upon patient request if the prescription is for a schedule... Start Date: 01/02/21 Status: Ordered hydrOXYzine hydrochloride 25 mg oral tablet 1 tablet = 25 mg, By Mouth, 4 times a day, PRN for anxiety, # 40 tablet, 0 Refills, Maintenance, 03/03/21 16:43:00 EDT, Tablet, [facility]/pharmacy #[id number], Partial fill upon patient request if the prescription is for a schedule II opioid drug., 153, cm, 03/03... Start Date: 03/03/21 Status: Ordered levothyroxine 0.2 mg oral tablet 1 tablet = 200 mcg, By Mouth, Daily, for hypothyroid, # 60 tablet, 11 Refills, Maintenance, 01/02/21 15:33:00 EDT, Tablet, [facility]/pharmacy #[id number], Partial fill upon patient request [...] adult(Confirmed) Active Hypothyroid(Confirmed) Active Hypothyroidism, postablative(Confirmed) Active Restless leg syndrome(Confirmed) Active Exogenous obesity(Confirmed) Active Social History Social History Type Response Tobacco Use: 4 or less cigar ettes(less than 1/4 pack)/day in last 30 days. Other: 3 ciggs / day. Type: Cigarettes. Sex Female
--- OUTSIDE RECORDS SUMMARY | 2023-12-17 08:15 | XMS_ITS | Continuity of Care Document ---
Author Organization [facility] Address [address] [place] [address]- Care Team Providers Care Crane Operator Name Role Phone Not on Staff, PCP Primary Care Physician Unavail able Encounter [facility] [place] Date(s): 11/19/20 - 11/20/[address] [address]- Discharge Disposition: A-D/C Home Attending Physician: Matteo Jones MD Admitting Physician: Matteo Jones MD Referring Physician: Not on Staff, Referring [...] 16:19:55 EST Start Date: 08/17/18 Status: Ordered gabapentin 100 mg oral capsule 100 mg, 1, capsule, By Mouth, 3 times a day, # 180 capsule, Refills 0, Tot. Refills 0, Maintenance,11/20/20 11:04:00 EDT, Route to Pharmacy Electronically, [facility]/pharmacy #[id number], Partial fill upon patient request if the prescription is for a schedule II... Start Date: 11/20/20 Stop Date: 01/19/21 Status: Ordered levothyroxine 0.2 mg oral tablet 1 tablet = 200 mcg, By Mouth, Daily, increase from .175mg, # 30 tablet, 3 Refills, Maintenance, 05/04/17 14:19:03, Tablet Start Date: 05/04/17 Stop Date: 09/01/17 Status: Ordered levothyroxine 0.2 mg oral tablet 1 tablet = 200 mcg, By Mouth, Daily, # 60 tablet, 0 Refills, Maintenance, 11/20/20 10:55:00 EDT, Tablet, [facility]/pharmacy #[id number], Partial fill upon patient request if the prescription is for a schedule IIopioid drug., 153, cm, 05/10/20 15:59:00 EST, Heigh... 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 Results Orders for Microbiology Reports Name Date Urine Culture (URINE CULTURE) 11/19/20 Microbiology Reports TEST:Urine Culture STATUS:Unauthenticated BODY SITE: SOURCE:URINE COLLECTED DATE/TIME:11/19/20 9:49 PM Urine Culture SPECIMEN DESCRIPTION : URINE CLEAN CATCH/MIDSTREAM SPECIAL REQUESTS : NONE Reflexed from [id number] REPORT STATUS : PRELIMINARY REPORT Vital Signs Most recent to oldest [Reference Range]: 1 2 3 Oxygen Saturation [94-100 %] 99 % (11/20/20 11:28 AM) 99 % (11/20/20 8:21 AM) 98 % (11/20/20 5:51 AM) Pulse Rate [55-90 bpm] 74 bpm (11/20/20 11:28 AM) 76 bpm (11/20/20 8:21 AM) 89 bpm (11/20/20 5:51 AM) Blood Pressure [90-138/55-84 mm Hg] 143/74mm Hg *H* (11/20/20 11:28 AM) 157/91mm Hg *H* (11/20/20 8:21 AM) 154/99mm Hg *H* (11/20/20 5:51 AM) Respiratory Rate [16-30 br/min] 17 br/min (11/20/20 11:28 AM) 16 br/min (11/20/20 8:21 AM) 22 br/min (11/20/20 5:51 AM) Temperature [96.8-100.4 DegF] 98.5 DegF (11/20/20 5:51 AM) 98.4 DegF (11/20/20 3:32 AM) 98.0 DegF (11/20/20 12:47 AM) Mode of Delivery (Oxygen) Room air (11/20/20 11:28 AM) Room air (11/20/20 8:21 AM) Room air (11/20/20 12:47 AM) Blood pressure sites Arm, left (11/20/20 8:21 AM) Arm, right (11/20/20 12:47 AM) Arm, right (11/19/20 8:50 PM) Temperature Route Oral (11/20/20 5:51 AM) Oral (11/20/20 3:32 AM) Oral (11/20/20 12:47 AM) Social History Social History Type Response Smoking Status 5-9 cigarettes (betw een 1/4 to 1/2 pack)/day in last 30 days; Type: Cigarettes entered on: 10/27/18 Sex Female
--- OUTSIDE RECORDS SUMMARY | 2023-12-17 08:15 | XMS_ITS | Continuity of Care Document ---
Author Organization [facility] Address [address] [place] [address]- Care Team Providers Care Wall Cleaner Name Role Phone Curtis ANTHONY, Denisse Kellogg Primary Care Physician Encounter [facility] Date(s): 10/20/21 - 11/23/[address] [address] Attending Physician: Not on Staff, Attending MD Allergies, Adverse Reactions, Alerts Substance Reaction Severity Status metFORMIN GI intolerance Active Immunizations Given and Recorded Vaccine Date Status Refusal Reason SARS-CoV-2 (COVID-19) mRNA BNT-162b2 vac 1, 2 01/24/21 Given SARS-CoV-2 (COVID-19) mRNA BNT-162b2 vac 01/03/21 Given tetanus/diphtheria/pertussis, acel(Tdap) 01/25/17 Given 1? Unknown: Resend to [facility]. 2Result Comment: lot was [id number] Medications acetaminophen 325 mg oral tablet 650 mg, 2, tablet, By Mouth, 3 times a day, PRN, # 180 tablet, Refills 11, Tot. Refills 11, Maintenance, for pain, 03/03/21 16:43:00 EDT, Route to Pharmacy Electronically, [facility]/pharmacy #[id number], Partialfill upon patient request if the [...] Mouth, Daily, # 30 tablet, 1 Refills, [facility] STORE [id number], 153, cm, 10/13/21 14:57:00 EDT,Height Start Date: [...]
--- OUTSIDE RECORDS SUMMARY | 2023-12-17 08:15 | XMS_ITS | Continuity of Care Document ---
Author Organization [facility] Address [address] [place] [address]- Care Team Providers Care Relocation Counselor Name Role Phone Denisse Acevedo MD Primary Care Physician [facility] Date[facility]s): 09/[facility]/23 - 10/30/23 [facility] [address] [place], [place] [phone] Attending Physician: Admtr, Sanju Admitting Physician: Admtr, Ar8 Referring Physician: Admtr, Ar8 Allergies, Adverse Reactions, Alerts Substance Reaction Severity Status metFORMIN GI intolerance Active Immunizations Given and Recorded Vaccine Date Status Refusal Reason SARS-CoV-2 (COVID-19) mRNA BNT-162b2 vac 1, 2 01/24/21 Given SARS-CoV-2 (COVID-19) mRNA BNT-162b2 vac 01/03/21 Given tetanus/diphtheria/pertussis, acel(Tdap) 01/25/17 Given 1? Unknown: Resend to [facility]. 2Result Comment: lot was [id number] Medications Blood Pressure Monitor See Instructions, # [...] Maintenance, 08/17/23 9:46:00 EST, ER Tablet, [id number], Partial fill upon patient request if the prescription is for a schedule II opioid drug., 1 tablet By... Start Date: 08/17/23 Status: Ordered diclofenac 1% topical gel 1 application, Topically, 4 times a day, PRN Pain , Mild, # 100 Gm, 4 Refills, Maintenance, 01/05/22 11:45:00 EDT, Gel, [facility]/pharmacy #[id number], Partial fill upon patient request if the prescription is for a schedule II opioid drug., 153, cm, 01/05/22 11:0... Start Date: 01/05/22 Status: Ordered ferrous sulfate 325 mg oral enteric coated tablet 325 mg, 1, tablet, By Mouth, Every Wednesday, Wednesday and Wednesday, # 39 tablet, Refills 3, Tot. Refills 3, Maintenance, 05/20/23 10:58:00 EST, Route to Pharmacy Electronically, [facility]/pharmacy #[id number], Partial fill upon [...] Refills, Maintenance, 10/28/23 15:44:00 EDT, [id number], 153, cm, 09/30/23 18:13:00 EDT, Height, 100, kg, 08/26/23 18:28:00 EDT, Dry Weight Start Date: 10/28/23 Status: Ordered Metamucil 3.4 gm/5.2 gm oral powder for reconstitution = 1.7 Gm, By Mouth, Daily, PRN as needed for constipation, # 283 Gm, 11 Refills, Maintenance, 11/13/22 10:18:00 EDT, REC Powder, [facility]/pharmacy #[id number], Partial fill upon patient request if the prescription is for a schedule II opioid drug., 153, cm, ... Start Date: 11/13/22 Status: Ordered olmesartan 5 mg oral tablet 1 tablet, By Mouth, Daily, # 90 tablet, 1 Refills, Maintenance, 06/13/23 9:43:00 EST, [facility], 153, cm, 05/20/23 10:37:00 EST, Height Start Date: 06/13/23 Status: Ordered tirzepatide 5 mg/0.5 mL subcutaneous solution = 5 mg, Subcutaneous Injection, Every week, rotate injection sites; use Tirzepatide 0.25mg weekly x4 weeks then increase dose, # 4 each, 4 Refills, Maintenance, 09/30/23 18:26:00 EDT, [facility] upon [facility] re... Start Date: 09/30/23 Status: Ordered Vitamin C 500 mg oral tablet 1 tablet = 500 mg, By Mouth, Daily, # 90 tablet, 3 Refills, Maintenance, 10/19/22 18:14:00 EDT, Tablet, [facility]/pharmacy #[id number], Partial fill upon [...] ciggs / day. Type: Cigarettes. Sex Female Radiology * Event Display: MRI Ankle/Foot, Non- Authored Date: Patient Care team information Care Team Personnel Name: Curtis ANTHONY, Denisse Kellogg Position: [facility] Physician - Primary Care Member Role: PCP Address: Address: [address] [place] [address]- Care Team Related Persons Name: INDERJIT WATT Address: home [address] [place] [address] Name: HITESH WATT Address: [place] [address] Name: PT STATES, NO ONE Name: CHELSIE FRY Address: [place] [address]
--- OUTSIDE RECORDS SUMMARY | 2023-12-17 08:15 | XMS_ITS | Continuity of Care Document ---
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 Results Radiology Reports * Exam Date Time Procedure Performing Provider Status 09/25/19 6:49 PM Chest 2 Views Frontal and Lat Aruna Arnett; Auth (Verified) Notes: (Chest 2 Views Frontal and Lat) Reason For Exam: Shortness of Breath, Fever;Other: RESULT: Chest 2 Views Frontal and Lat Chest 2 Views Frontal and Lat Refer to EMR; Reason: Other:; Shortness of Breath, Fever; Clinical Question(s): Pneumonia; Hx of Present Illness: Chest discomfort anxiety; Other Objective Findings: Reports chest tightness has history of anxiety taking busoar is smoker with clear LS denies abdominal pain ambulates wi steady gait neuros intact f anxiety taking busoar is smoker with clear LS denies abdominal pain ambulates wih st COMPARISON: None. FINDINGS: LINES AND TUBES: None. LUNGS AND PLEURA: Clear lungs. Normal pulmonary vascularity. No pleural effusion. No pneumothorax. HEART, MEDIASTINUM AND SAMRA: Heart is normal in size. Normal mediastinal and hilar contour. BONES AND SOFT TISSUES: No acute abnormality. IMPRESSION: No acute abnormality. WSN: [id number] Ordering Physician: Marci Husain Dictated By: Remigio Quintana MD Dictated Date/Time: 09/25/19 6:52 pm Reviewed By: Remigio Quintana MD Signed By: Remigio Quintana MD Signed Date/Time: 09/25/19 6:52 pm Transcribed By: KELSEY Transcribed Date/Time: 09/25/19 6:52 pm Vital Signs Most recent to oldest [Reference Range]: 1 2 3 Height 153 cm (09/25/19 10:06 PM) 153 cm (09/25/19 9:29 PM) 153 cm (09/25/19:22 PM) Weight 93 kg (09/25/19 10:06 PM) 93 kg (09/25/19 9:29 PM) 93 kg (09/25/19:22 PM) Oxygen Saturation [94-100 %] 100 % (09/25/19 10:06 PM) 100 % (09/25/19:29 PM) 100 % (09/25/19:22 PM) Pulse Rate [55-90 bpm] 91 bpm *H* (09/25/19 10:06 PM) 82 bpm (09/25/19:29 PM) 75 bpm (09/25/19:22 PM) Body Mass Index [18.5-24.99] 39.73 *>HHI* (09/25/19 10:06 PM) 39.73 *>HHI* (09/25/19:29 PM) 39.73 *>HHI* (09/25/19:22 PM) Blood Pressure [90-138/55-84 mm Hg] 116/63mm Hg (09/25/19 10:06 PM) 121/62mm Hg (09/25/19:29 PM) 120/56mm Hg (09/25/19:22 PM) Respiratory Rate [16-30 br/min] 18 br/min (09/25/19 10:06 PM) 20 br/min (09/25/19:29 PM) 17 br/min (09/25/19:22 PM) Temperature [96.8-100.4 DegF] 98.4 DegF (09/25/19 5:50 PM) Mode of Delivery (Oxygen) Room air (09/25/19 10:06 PM) Room air (09/25/19 7:22 PM) Room air (09/25/19 5:50 PM) Blood pressure sites Arm, left (09/25/19 7:22 PM) Arm, right (09/25/19 5:50 PM) Temperature Route Oral (09/25/19 5:50 PM) Dry Weight 93 kg (09/25/19 10:06 PM) 93 kg (09/25/19 9:29 PM) 93 kg (09/25/19 7:22 PM) Weight Obtained Via Standing scale (09/25/19 5:50 PM) Dry Weight Obtained Via Standing scale (09/25/19 5:50 PM) Social History Social History Type Response Smoking Status 5-9 cigarettes (betw een 1/4 to 1/2 pack)/day in last 30 days; Type: Cigarettes entered on: 10/27/18 Sex Female
--- OUTSIDE RECORDS SUMMARY | 2023-12-17 08:15 | XMS_ITS | Continuity of Care Document ---
Author Organization [facility] Address [address] [place] [address]- Care Team Providers Care Employment Interviewer Name Role Phone Curtis ANTHONY, Denisse Kellogg Primary Care Physician [facility]counter [facility] Date(s): 09/04/21 - 10/04/21 [facility] [address] [place] [address]- Attending Physician: Sanju James Admitting Physician: Sanju [...] [facility]. 2Result Comment: lot was [id number] Medications acetaminophen 325 mg oral tablet 650 mg, 2, tablet, By Mouth, 3 times a day, PRN, # 180 tablet, Refills 11, Tot. Refills 11, Maintenance, for pain, 03/03/21 16:43:00 EDT, Route to Pharmacy Electronically, [facility]/pharmacy #[id number], Partialfill upon patient request if the prescription is fo... Start Date: 03/03/21 Status: Ordered ferrous sulfate 325 mg oral enteric coated tablet 325 mg, 1, tablet, By Mouth, Daily, for anemia, # 30 tablet, Refills 11, Tot. Refills 11, Maintenance, 01/02/21 15:55:00 EDT, Route to Pharmacy Electronically, [facility]/pharmacy #[id number], Partial fill upon patient request if the prescription is for a schedule... Start Date: 01/02/21 Status: Ordered hydrOXYzine hydrochloride 25 mg oral tablet 1 tablet = 25 mg, By Mouth, 4 times a day, PRN for anxiety, # 40 tablet, 0 Refills, Maintenance, 03/03/21 16:43:00 EDT, Tablet, [facility]/pharmacy #[id number], Partial fill upon patient request if the prescription is for a schedule II opioid drug., 153, cm, 03/03... Start Date: 03/03/21 Status: Ordered levothyroxine 0.2 mg oral tablet 1 tablet = 200 mcg, By Mouth, Daily, for hypothyroid, # 60 tablet, 11 Refills, Maintenance, 01/02/21 15:33:00 EDT, Tablet, [facility]/pharmacy #[id number], Partial fill upon patient request if the prescription isfor a schedule II opioid drug., 153, cm, 01/02/21 1... Start Date: 01/02/21 Stop Date: 12/23/22 Status: Ordered Nexplanon 68 mg subcutaneous implant 1 each = 68 mg, Subcutaneous Infusion, Once, # 1 each, 0 Refills, Soft Stop, 03/01/17 16:13:38 Start Date: 03/01/17 Status: Ordered sertraline 50 mg oral tablet 1 tablet = 50 mg, By Mouth, Daily, 0.5 tab daily x 2 weeks and then 1 tab daily, # 30 tablet, 4 Refills, Maintenance, 09/04/21 17:05:00 EDT, Tablet, [facility]/pharmacy #[id number], Partial fill upon patient request if the prescription is for a schedule II opioid... Start Date: 09/04/21 Status: Ordered Vitamin D3 1000 intl units oral capsule 1 capsule = 25 mcg, By Mouth, Daily, for vitamin d deficiency, # 30 capsule, 11 Refills, Maintenance, 09/23/21 17:57:00 EDT, Capsule, [facility]/pharmacy #[id number], [...]
--- OUTSIDE RECORDS SUMMARY | 2023-12-17 08:15 | XMS_ITS | Continuity of Care Document ---
Author Organization [facility] Address [address] [place] [address]- Care Team Providers Care Straight Edger Name Role Phone Denisse Acevedo MD Primary Care Physician [phone] [place] [facility] [place] 08/19/23 - 09/18/23 [facility] [address] [place] [phone] Allergies, Adverse Reactions, Alerts Substance Reaction Severity Status metFORMIN GI intolerance Active Immunizations Given and Recorded Vaccine Date Status Refusal Reason SARS-CoV-2 (COVID-19) mRNA BNT-162b2 vac 1, 2 01/24/21 Given SARS-CoV-2 (COVID-19) mRNA BNT-162b2 vac 01/03/21 Given tetanus/diphtheria/pertussis, acel(Tdap) 01/25/17 Given 1? Unknown: Resend to [facility]. 2Result Comment: lot was [id number] Medications Blood Pressure Monitor See Instructions, # [...] Maintenance, 08/17/23 9:46:00 EST, ER Tablet, [id number], Partial fill upon patient request if the prescription is for a schedule II opioid drug., 1 tablet By... Start Date: 08/17/23 Status: Ordered diclofenac 1% topical gel 1 application, Topically, 4 times a day, PRN Pain , Mild, # 100 Gm, 4 Refills, Maintenance, 01/05/22 11:45:00 EDT, Gel, [facility]/pharmacy #[id number], Partial fill upon patient request if the prescription is for a schedule II opioid drug., 153, cm, 01/05/22 11:0... Start Date: 01/05/22 Status: Ordered ferrous sulfate 325 mg oral enteric coated tablet 325 mg, 1, tablet, By Mouth, Every Wednesday, Wednesday and Wednesday, # 39 tablet, Refills 3, Tot. Refills 3, Maintenance, 05/20/23 10:58:00 EST, Route to Pharmacy Electronically, [facility]/pharmacy #[id number], Partial fill upon [...] STOMACH., # 90 tablet, 1 Refills, Maintenance, 11/19/23 13:38:00 EST, [email or web address], 153, cm, 11/13/22 9:48:00 EDT, Height Start [...] tablet, 1 Refills, Maintenance, 06/13/23 9:43:00 EST, [email or web address], 153, cm, 05/20/23 10:37:00 EST, Height Start Date: 06/13/23 Status: Ordered tirzepatide 5 mg/0.5 mL subcutaneous solution = 5 mg, Subcutaneous Injection, Every week, rotate injection sites; use Tirzepatide 0.25mg weekly x4 weeks then increase dose, # 4 each, 4 Refills, Maintenance, 09/16/23 19:51:00 EDT, Solution, [id number], Partial fill upon patient request if... Start Date: 09/16/23 Status: Ordered Vitamin C 500 mg oral [...] Team Personnel Name: Denisse Acevedo MD Position: [facility] Physician - Primary Care Member Role: PCP Address: Address: [address] [place] [address]- Care Team Related Persons Name: INDERJIT WATT Address: home [address] [place] [address] Name: HITESH WATT Address: [place] [address] Name: PT STATES, NO ONE Name: CHELSIE FRY Address: [place] [address]
--- OUTSIDE RECORDS SUMMARY | 2023-12-17 08:15 | XMS_ITS | Continuity of Care Document ---
Author Organization [facility] Address [address] [place] [address]- Care Team Providers Care Application Support Consultant Name Role Phone Miriam Guzman MD Primary Care Physician [id number]/10/20 - 06/09/[address] [address] Attending Physician: Admtr, Sanju Allergies, [...]
--- OUTSIDE RECORDS SUMMARY | 2023-12-17 08:15 | XMS_ITS | Continuity of Care Document ---
Author Organization [facility] Address [address] [place] [address]- Care Team Providers Care Certified Genetic Counselor Name Role Phone Denisse Acevedo MD Primary Care Physician [phone] Encounter [facility] Date(s): 05/21/23 - 06/20/23 [facility] [address] [place], [place] [address] Allergies, Adverse Reactions, Alerts Substance Reaction Severity Status metFORMIN GI intolerance Active Immunizations Given and Recorded Vaccine Date Status Refusal Reason SARS-CoV-2 (COVID-19) mRNA BNT-162b2 vac 1, 2 01/24/21 Given SARS-CoV-2 (COVID-19) mRNA BNT-162b2 vac 01/03/21 Given tetanus/diphtheria/pertussis, acel(Tdap) 01/25/17 Given 1? Unknown: Resend to [facility]. 2Result Comment: lot was [id number] Medications diclofenac 1% topical gel 1 application, [...] 2 Refills, Maintenance, 05/21/23 11:30:00 EST, Tablet, [facility]/pharmacy #[id number], Partial fill upon patient request if the [...] Refills, Maintenance, 05/02/23 13:38:00 EST, [facility], 153, cm, 11/13/22 9:48:00 EDT, Height Start [...] tablet, 1 Refills, Maintenance, 06/13/23 9:43:00 EST, [facility], 153, cm, 05/20/23 10:37:00 EST, Height Start Date: 06/13/23 Status: Ordered Trulicity Pen 1.5 mg/0.5 mL subcutaneous solution See Instructions, INJECT 1 PEN SUBCUTANEOUSLY ONCE WEEKLY, ROTATE INJECTION SITES, # 2 Unknown, 5 Refills, Maintenance, 05/02/23 13:38:00 EST, [facility], 153, cm, 11/13/22 9:48:00 EDT, Height Start [...] Team Personnel Name: Denisse Acevedo MD Position: [facility] Physician - Primary Care Member Role: PCP Address: Address: [address] [place] [address]- Care Team Related Persons Name: INDERJIT WATT Address: home [address] [place] [address] Name: HITESH WATT Address: [place] [address] Name: PT STATES, NO ONE Name: CHELSIE FRY Address: [place] [address]
--- OUTSIDE RECORDS SUMMARY | 2023-12-17 08:15 | XMS_ITS | Continuity of Care Document ---
Author Organization [facility] ter Address [address] [place] [address]- Care Team Providers Care Automatic Fancy Machine Operator Name Role Phone Miriam Guzman MD Primary Care Physician Encounter [facility] Date(s): 12/12/20 - 12/13/[address] [address]- Discharge Disposition: A-D/C Home Attending Physician: Kel Westbrook MD Admitting Physician: Kel Westbrook MD Referring Physician: Not on Staff, Referring [...] Maintenance,11/20/20 11:04:00 EDT, Route to Pharmacy Electronically, [facility]/pharmacy #[id number], Partial fill upon patient request if the [...] 0 Refills, Maintenance, 11/20/20 10:55:00 EDT, Tablet, [facility]/pharmacy #[id number], Partial fill upon patient request if the [...] Exam Date Time Procedure Performing Provider Status 12/13/20 7:41 AM Chest Portable Barbie Carrasquillo; Auth (Ve rified) Notes: (Chest Portable) Reason For Exam: Shortness of Breath RESULT: Chest Portable Chest Portable Hx of Present Illness: pt co back pain, L shoulder arm pain, L foot numbness, abd cran=mpt with nausea and loose stool; Reason: Shortness of Breath; Clinical Question(s): CHF COMPARISON: Chest radiograph 09/25/2019 FINDINGS: LINES AND TUBES: None. LUNGS AND PLEURA: Clear lungs. Normal pulmonary vascularity. No pleural effusion. No pneumothorax. HEART, MEDIASTINUM AND SAMRA: Heart is normal in size. Normal upper mediastinal and hilar contour. BONES AND SOFT TISSUES: No acute abnormality. IMPRESSION: No acute abnormality. WSN: [id number] Ordering Physician: Sheldon Hager Dictated By: Leslie Estrada MD Dictated Date/Time: 12/13/20 7:43 am Reviewed By: Leslie Estrada MD Signed By: Leslie Estrada MD Signed Date/Time: 12/13/20 7:43 am Transcribed By: KELSEY Transcribed Date/Time: 12/13/20 7:42 am Vital Signs Most recent to oldest [Reference Range]: 1 2 3 Oxygen Saturation [94-100 %] 96 % (12/13/20 2:19 PM) 96 % (12/13/20 12:22 PM) 98 % (12/13/20 10:03 AM) Pulse Rate [55-90 bpm] 80 bpm (12/13/20 2:19 PM) 81 bpm (12/13/20 12:22 PM) 84 bpm (12/13/20 10:03 AM) Blood Pressure [90-138/55-84 mm Hg] 130/71mm Hg (12/13/20 2:19 PM) 128/60mm Hg (12/13/20 12:22 PM) 138/70mm Hg (12/13/20 10:03 AM) Respiratory Rate [16-30 br/min] 16 br/min (12/13/20 2:19 PM) 16 br/min (12/13/20 12:22 PM) 20 br/min (12/13/20 10:03 AM) Temperature [96.8-100.4 DegF] 97.6 DegF (12/13/20 10:03 AM) 97.9 DegF (12/13/20 7:48 AM) 98.4 DegF (12/13/20 5:29 AM) Mode of Delivery (Oxygen) Room air (12/13/20 2:19 PM) Room air (12/13/20 10:03 AM) Room air (12/13/20 7:48 AM) Blood pressure sites Arm, right (12/13/20 2:19 PM) Arm, right (12/13/20 10:03 AM) Arm, left (12/13/20 5:29 AM) Temperature Route Oral (12/13/20 10:03 AM) Oral (12/13/20 7:48 AM) Oral (12/13/20 5:29 AM) Social History Social History Type Response Smoking Status 5-9 cigarettes (betw een 1/4 to 1/2 pack)/day in last 30 days; Type: Cigarettes entered on: 10/27/18 Sex Female
--- OUTSIDE RECORDS SUMMARY | 2023-12-17 08:15 | XMS_ITS | Continuity of Care Document ---
Author Organization [facility] Address [address] [place] [address]- Care Team Providers Care Dairy Products Maker Name Role Phone Curtis ANTHONY, Denisse Kellogg Primary Care Physician [phone] Encounter [facility] Date(s): 06/04/22 - 07/04/[address] [address]- Allergies, Adverse Reactions, Alerts Substance Reaction Severity Status metFORMIN GI intolerance Active Immunizations Given and Recorded Vaccine Date Status Refusal Reason SARS-CoV-2 (COVID-19) mRNA BNT-162b2 vac 1, 2 01/24/21 Given SARS-CoV-2 (COVID-19) mRNA BNT-162b2 vac 01/03/21 Given tetanus/diphtheria/pertussis, acel(Tdap) 01/25/17 Given 1? Unknown: Resend to [facility]. 2Result Comment: lot was [id number] Medications Debbie 0.35 mg oral tablet 1 [...] 11 Refills, Maintenance, 05/01/22 15:17:00 EST, Tablet, [facility]/pharmacy #[id number], Change iron formulation, 153, cm, 04/14/22 8:08:00 EDT, Height Start Date: 05/01/22 Status: Ordered FLUoxetine 20 mg oral capsule 20 mg, 1, capsule, By Mouth, Daily, # 30 capsule, Refills 4, Tot. Refills 4, Maintenance, 02/05/22 13:20:00 EDT, Route to Pharmacy Electronically, [facility]/pharmacy #[id number], Partial fill upon patient request if the prescription is for a schedule II opioid drAyo.. Start Date: 02/05/22 Status: Ordered Freestyle Lite [...] 01/05/22 11:40:00 EDT, Route to Pharmacy Electronically, [facility]/pharmacy #[id number], Partial fill upon patient request if the prescription is for a schedule II opioid drug... Start Date: 01/05/22 Stop Date: 01/15/22 Status: Ordered Vitamin D3 1000 intl units oral capsule 1 capsule = 25 mcg, By Mouth, Daily, for vitamin d deficiency, # 30 capsule, 11 Refills, Maintenance, 09/23/21 17:57:00 EDT, [facility], [facility], Partial fill upon patient request if the [...] Care team information Care Team Personnel Name: eDnisse Acevedo MD Position: S Primary Care Physician Member Role: PCP Address: Address: [address] [place] [address] [address]- Care Team Related Persons Name: INDERJIT WATT Address: home [address] [place] [address] Name: HITESH WATT Address: [place] [address] Name: STATES, NO ONE Name: CHELSIE FRY Address: [place] [address]
--- OUTSIDE RECORDS SUMMARY | 2023-12-17 08:15 | XMS_ITS | Continuity of Care Document ---
Author Organization [facility] Address [address] [place] [address]- Care Team Providers Care Garbage Collector Supervisor Name Role Phone Curtis ANTHONY, Denisse Kellogg Primary Care Physician [phone] Encounter [facility] Date(s): 04/27/23 - 05/27/[address] [address] Allergies, Adverse Reactions, Alerts Substance Reaction Severity Status metFORMIN GI intolerance Active Immunizations Given and Recorded Vaccine Date Status Refusal Reason SARS-CoV-2 (COVID-19) mRNA BNT-162b2 vac 1, 2 01/24/21 Given SARS-CoV-2 (COVID-19) mRNA BNT-162b2 vac 01/03/21 Given tetanus/diphtheria/pertussis, acel(Tdap) 01/25/17 Given 1? Unknown: Resend to [facility]. 2Result Comment: lot was [id number] Medications diclofenac 1% topical gel 1 application, Topically, 4 times a day, PRN Pain , Mild, # 100 Gm, 4 Refills, Maintenance, 01/05/22 11:45:00 EDT, Gel, [facility]/pharmacy #[id number], Partial fill upon patient request if the prescription is for a schedule II opioid drug., 153, cm, 01/05/22 11:0... Start Date: 01/05/22 Status: Ordered ferrous sulfate 325 mg oral enteric coated tablet 325 mg, 1, tablet, By Mouth, Every Wednesday, Wednesday and Wednesday, # 39 tablet, Refills 3, Tot. Refills 3, Maintenance, 05/20/23 10:58:00 EST, Route to Pharmacy Electronically, [facility]/pharmacy #[id number], Partial fill upon patient request if the prescription is... Start Date: 05/20/23 Status: Ordered FLUoxetine 20 mg oral tablet 3 tablet = 60 mg, By Mouth, Daily, # 90 tablet, 2 Refills, Maintenance, 05/21/23 11:30:00 EST, Tablet, [facility]/pharmacy #[id number], Partial fill upon patient request if the [...] tablet, 1 Refills, Maintenance, 05/02/23 13:38:00 EST, [facility] [id number], 153, cm, 11/13/22 9:48:00 EDT, Height Start Date: 05/02/23 Status: Ordered Metamucil 3.4 gm/5.2 gm oral powder for reconstitution = 1.7 Gm, By Mouth, Daily, PRN as needed for constipation, # 283 Gm, 11 Refills, Maintenance, 11/13/22 10:18:00 EDT, REC Powder, [facility]/pharmacy #[id number], Partial fill upon patient request if the prescription is for a schedule II opioid drug., 153, cm, 0... Start Date: 11/13/22 Status: Ordered olmesartan 5 mg oral tablet 1 tablet = 5 mg, By Mouth, Daily, # 30 tablet, 5 Refills, Maintenance, 12/09/22 18:05:00 EDT, Tablet, [facility]/pharmacy #[id number], Partial fill upon patient request if the prescription is for a schedule II opioid drug., 153, cm, 11/13/22 9:48:00 EDT, Height Start Date: 12/09/22 Status: Ordered Trulicity Pen 1.5 mg/0.5 mL subcutaneous solution See Instructions, INJECT 1 PEN SUBCUTANEOUSLY ONCE WEEKLY, ROTATE INJECTION SITES, # 2 Unknown, 5 Refills, Maintenance, 05/02/23 13:38:00 EST, [facility] [id number], 153, cm, 11/13/22 9:48:00 EDT, Height Start Date: 05/02/23 Status: Ordered Vitamin C 500 mg oral tablet 1 tablet = 500 mg, By Mouth, Daily, # 90 tablet, 3 Refills, Maintenance, 10/19/22 18:14:00 EDT, Tablet, [facility]/pharmacy #[id number], Partial fill upon patient request if [...] Team Personnel Name: Denisse Acevedo MD Position: [facility] Physician - Primary Care Member Role: PCP Address: Address: [address] [place] [address]- Care Team Related Persons Name: INDERJIT WATT Address: home [address] [place] [address] Name: HITESH WATT Address: [place] [address] Name: PT STATES, NO ONE Name: CHELSIE FRY Address: [place] [address]
--- OUTSIDE RECORDS SUMMARY | 2023-12-17 08:15 | XMS_ITS | Continuity of Care Document ---
Author Organization [facility] Address [address] [place] [address]- Care Team Providers Care Flotation Tank Operator Name Role Phone Thomas ANTHONY, Miriam Primary Care Physician [phone] Encounter [facility] Date(s): 11/29/20 - 12/29/20 [facility] [address], [place] [address] Allergies, Adverse Reactions, Alerts Substance Reaction [...] Maintenance,11/20/20 11:04:00 EDT, Route to Pharmacy Electronically, [facility]/pharmacy #[id number], Partial fill upon patient request if the [...] 0 Refills, Maintenance, 11/20/20 10:55:00 EDT, Tablet, [facility]/pharmacy #[id number], Partial fill upon patient request if the prescription is for a schedule IIopioid drug., 153, cm, 05/10/20 15:59:00 ESTCristela... Start Date: 11/20/20 Stop Date: 01/19/21 Status: [...]
--- OUTSIDE RECORDS SUMMARY | 2023-12-17 08:15 | XMS_ITS | Continuity of Care Document ---
Author Organization [facility] Address [address] [place] [address]- Care Team Providers Care Urgent Care Technician Name Role Phone Curtis ANTHONY, Denisse Kellogg Primary Care Physician Encounter [facility] Date(s): 06/03/22 - 07/03/[address] [address] Attending Physician: Admtr, Sanju Allergies, Adverse Reactions, Alerts Substance Reaction Severity Status metFORMIN GI intolerance Active Immunizations Given and Recorded Vaccine Date Status Refusal Reason SARS-CoV-2 (COVID-19) mRNA BNT-162b2 vac 1, 2 01/24/21 Given SARS-CoV-2 (COVID-19) mRNA BNT-162b2 vac 01/03/21 Given tetanus/diphtheria/pertussis, acel(Tdap) 01/25/17 Given 1? Unknown: Resend to [facility]. 2Result Comment: lot was [id number] Medications Debbie 0.35 mg oral tablet 1 [...] 11 Refills, Maintenance, 05/01/22 15:17:00 EST, Tablet, [facility]/pharmacy #[id number], Change iron formulation, 153, cm, 04/14/22 8:08:00 EDT, Height Start Date: 05/01/22 Status: Ordered FLUoxetine 20 mg oral capsule 20 mg, 1, capsule, By Mouth, Daily, # 30 capsule, Refills 4, Tot. Refills 4, Maintenance, 02/05/22 13:20:00 EDT, Route to Pharmacy Electronically, [facility]/pharmacy #[id number], Partial fill upon patient request [...] 11 Refills, Maintenance, 05/01/22 15:00:00 EST, Tablet, [facility]/pharmacy #[id number], Partial fill upon patient request [...] 01/05/22 11:40:00 EDT, Route to Pharmacy Electronically, [facility]/pharmacy #[id number], Partial fill upon patient request [...] Care team information Care Team Personnel Name: Denises Acevedo MD Position: S Primary Care Physician Member Role: PCP Address: Address: [address] [place] [address], [place] [address]- Care Team Related Persons Name: INDERJIT WATT Address: home [address] [place] [address] Name: HITESH WATT Address: [place] [address] Name: PT STATES, NO ONE Name: CHELSIE FRY Address: [place] [address]
--- OUTSIDE RECORDS SUMMARY | 2023-12-17 08:15 | XMS_ITS | Continuity of Care Document ---
Author Organization [facility] Address [address] [place] [address]- Care Team Providers Care Sheet Heater Helper Name Role Phone Denisse Acevedo MD Primary Care Physician Encounter [facility] Date(s): 10/24/21 - 01/18/[address] [address] Attending Physician: Floyd Schaffer OD Admitting Physician: Floyd Schaffer OD Referring Physician: Denisse Acevedo MD Allergies, Adverse Reactions, Alerts Substance Reaction Severity Status metFORMIN GI intolerance Active Immunizations Given and Recorded Vaccine Date Status Refusal Reason SARS-CoV-2 (COVID-19) mRNA BNT-162b2 vac 1, 2 01/24/21 Given SARS-CoV-2 (COVID-19) mRNA BNT-162b2 vac 01/03/21 Given tetanus/diphtheria/pertussis, acel(Tdap) 01/25/17 Given 1? Unknown: Resend to [facility]. 2Result Comment: lot was [id number] Medications acetaminophen 325 mg oral tablet 650 mg, 2, tablet, By Mouth, 3 times a day, PRN, # 180 tablet, Refills 11, Tot. Refills 11, Maintenance, for pain, 03/03/21 16:43:00 EDT, Route to Pharmacy Electronically, [facility]/pharmacy #[id number], Partialfill upon patient request if the prescription is fo... Start Date: 03/03/21 Status: Ordered diclofenac 1% topical gel 1 application, Topically, 4 times a day, PRN Pain , Mild, # 100 Gm, 4 Refills, Maintenance, 01/05/22 11:45:00 EDT, Gel, [facility]/pharmacy #[id number], Partial fill upon patient request if the prescription is for a schedule II opioid drug., 153, cm, 01/05/22 11:0... Start Date: 01/05/22 Status: Ordered ferrous gluconate 324 mg oral tablet 1 tablet = 324 mg, By Mouth, Every other day, for anemia;, # 15 tablet, 4 Refills, Maintenance, 01/05/22 11:44:00 EDT, Tablet, [facility]/pharmacy #[id number], Change iron formulation, 153, cm, 01/05/22 [...] 0 Refills, Maintenance, 03/03/21 16:43:00 EDT, Tablet, [facility]/pharmacy #[id number], Partial fill upon patient request if [...] Refills, Maintenance, 01/05/22 11:42:00 EDT, ER Tablet, [id number], Partial fill upon patientrequest if the [...] 01/05/22 11:40:00 EDT, Route to Pharmacy Electronically, [facility]/pharmacy #[id number], Partial fill upon patient request if the prescription is for a schedule II opioid drug... Start Date: 01/05/22 Stop Date: 01/15/22 Status: Ordered Vitamin D3 1000 intl units oral capsule 1 capsule = 25 mcg, By Mouth, Daily, for vitamin d deficiency, # 30 capsule, 11 Refills, Maintenance, 09/23/21 17:57:00 EDT, Capsule, [facility]/pharmacy #[id number], Partial fill upon patient request if [...]
--- OUTSIDE RECORDS SUMMARY | 2023-12-17 08:15 | XMS_ITS | Continuity of Care Document ---
Author Organization [facility] Address [address] [place] [address]- Care Team Providers Care Computer Mechanic Name Role Phone Denisse Acevedo MD Primary Care Physician Encounter [facility] R [id number] Date(s): 10/20/21 - 12/20/21 [facility] [address] [place] [address]- Attending Physician: Denisse Acevedo MD Admitting Physician: Denisse Acevedo MD Allergies, Adverse Reactions, Alerts Substance Reaction Severity Status metFORMIN GI intolerance Active Immunizations Given and Recorded Vaccine Date Status Refusal Reason SARS-CoV-2 (COVID-19) mRNA BNT-162b2 vac 1, 2 01/24/21 Given SARS-CoV-2 (COVID-19) mRNA BNT-162b2 vac 01/03/21 Given tetanus/diphtheria/pertussis, acel(Tdap) 01/25/17 Given 1? Unknown: Resend to [facility]. 2Result Comment: lot was [id number] Medications acetaminophen 325 mg oral tablet 650 mg, 2, tablet, By Mouth, 3 times a day, PRN, # 180 tablet, Refills 11, Tot. Refills 11, Maintenance, for pain, 03/03/21 16:43:00 EDT, Route to Pharmacy Electronically, [facility]/pharmacy #[id number], Partialfill upon patient request if the prescription is fo... Start Date: 03/03/21 Status: Ordered ferrous sulfate 325 mg oral enteric coated tablet 325 mg, 1, tablet, By Mouth, Daily, for anemia, # 30 tablet, Refills 11, Tot. Refills 11, Maintenance, 01/02/21 15:55:00 EDT, Route to Pharmacy Electronically, [facility]/pharmacy #[id number], Partial fill upon patient request if the prescription is for a schedule... Start Date: 01/02/21 Status: Ordered hydrOXYzine hydrochloride 25 mg oral tablet 1 tablet = 25 mg, By Mouth, 4 times a day, PRN for anxiety, # 40 tablet, 0 Refills, Maintenance, 03/03/21 16:43:00 EDT, Tablet, [facility]/pharmacy #[id number], Partial fill upon patient request if the prescription is for a schedule II opioid drug., 153, cm, 03/03... Start Date: 03/03/21 Status: Ordered levothyroxine 0.2 mg oral tablet 1 tablet = 200 mcg, By Mouth, Daily, for hypothyroid, # 60 tablet, 11 Refills, Maintenance, 01/02/21 15:33:00 EDT, Tablet, [facility]/pharmacy #[id number], Partial fill upon [...] Mouth, Daily, # 30 tablet, 1 Refills, [facility] STORE [id number], 153, cm, 10/13/21 14:57:00 EDT,Height Start Date: 11/06/21 Status: Ordered Vitamin D3 1000 intl units oral capsule 1 capsule = 25 mcg, By Mouth, Daily, for vitamin d deficiency, # 30 capsule, 11 Refills, Maintenance, 09/23/21 17:57:00 EDT, Capsule, [facility]/pharmacy #[id number], Partial fill upon [...]
--- OUTSIDE RECORDS SUMMARY | 2023-12-17 08:15 | XMS_ITS | Continuity of Care Document ---
Author Organization [facility] Address [address] [place] [address]- Care Team Providers Care Deputy Administrator Name Role Phone Denisse Acevedo MD Primary Care Physician Encounter [facility] Date(s): 05/02/23 - 06/01/23 [facility] [address] [place], [place] [address] Allergies, Adverse Reactions, Alerts Substance Reaction Severity Status metFORMIN GI intolerance Active Immunizations Given and Recorded Vaccine Date Status Refusal Reason SARS-CoV-2 (COVID-19) mRNA BNT-162b2 vac 1, 2 01/24/21 Given SARS-CoV-2 (COVID-19) mRNA BNT-162b2 vac 01/03/21 Given tetanus/diphtheria/pertussis, acel(Tdap) 01/25/17 Given 1? Unknown: Resend to [facility]. 2Result Comment: lot was [id number] Medications diclofenac 1% topical gel 1 application, Topically, 4 times a day, PRN Pain , Mild, # 100 Gm, 4 Refills, Maintenance, 01/05/22 11:45:00 EDT, Gel, [facility]/pharmacy #[id number], Partial fill upon [...] EST, Route to Pharmacy Electronically, [facility]/pharmacy #[id number], Partial fill upon patient request if the prescription is... Start Date: 05/20/23 Status: Ordered FLUoxetine 20 mg oral tablet 3 tablet = 60 mg, By Mouth, Daily, # 90 tablet, 2 Refills, Maintenance, 05/21/23 11:30:00 EST, Tablet, [facility]/pharmacy #[id number], Partial fill [...] tablet, 1 Refills, Maintenance, 05/02/23 13:38:00 EST, [facility] 215[facility], 153, cm, 11/13/22 9:48:00 EDT, Height Start Date: 05/02/23 Status: Ordered Metamucil 3.4 gm/5.2 gm oral powder for reconstitution = 1.7 Gm, By Mouth, Daily, PRN as needed for constipation, # 283 Gm, 11 Refills, Maintenance, 11/13/22 10:18:00 EDT, REC Powder, [facility]/pharmacy #[id number], Partial fill upon patient request if the prescription is for a schedule II opioid drug., 153, cm, 0... Start Date: 11/13/22 Status: Ordered olmesartan 5 mg oral tablet 1 tablet = 5 mg, By Mouth, Daily, # 30 tablet, 5 Refills, Maintenance, 12/09/22 18:05:00 EDT, Tablet, [facility]/pharmacy #[id number], Partial fill upon patient request if the prescription is for a schedule II opioid drug., 153, cm, 11/13/22 9:48:00 EDT, Height Start Date: 12/09/22 Status: Ordered Trulicity Pen 1.5 mg/0.5 mL subcutaneous solution See Instructions, INJECT 1 PEN SUBCUTANEOUSLY ONCE WEEKLY, ROTATE INJECTION SITES, # 2 Unknown, 5 Refills, Maintenance, 05/02/23 13:38:00 EST, [facility] [id number], 153, cm, 11/13/22 9:48:00 EDT, Height Start [...] Primary Care Member Role: PCP Address: Address: [address] [place] [address]- Care Team Related Persons Name: INDERJIT WATT Address: home [address] [place] [address] Name: HITESH WATT Address: [place] [address] Name: PT STATES, NO ONE Name: CHELSIE FRY Address: [place] [address]
--- OUTSIDE RECORDS SUMMARY | 2023-12-17 08:15 | XMS_ITS | Continuity of Care Document ---
Author Organization [facility] Address [address] [place] [address]- Care Team Providers Care Geophysical Prospecting Permit Agent Name Role Phone Denisse Acevedo MD Primary Care Physician Encounter [facility] Date(s): 11/07/23 - 12/07/23 [facility] [address] [place] [phone] Allergies, Adverse Reactions, Alerts Substance Reaction Severity Status metFORMIN GI intolerance Active Immunizations Given and Recorded Vaccine Date Status Refusal Reason SARS-CoV-2 (COVID-19) mRNA BNT-162b2 vac 1, 2 01/24/21 Given SARS-CoV-2 (COVID-19) mRNA BNT-162b2 vac 01/03/21 Given tetanus/diphtheria/pertussis, acel(Tdap) 01/25/17 Given 1? Unknown: Resend to [facility]. 2Result Comment: lot was [id number] Medications Blood Pressure Monitor See Instructions, # [...] Refills, Maintenance, 11/17/23 11:13:00 EDT, [facility], 90, TAKE 1 TABLET BY MOUTH EVERY DAY, 153, cm, 09/30/23 18:13:00 EDT, Height, 100, kg, 08/25/2417:28:00 EDT, Dry Weight Start Date: 11/17/23 Status: Ordered diclofenac 1% topical gel 1 application, Topically, 4 times a day, PRN Pain , Mild, # 100 Gm, 4 Refills, Maintenance, 01/05/22 11:45:00 EDT, Gel, [facility]/pharmacy #[id number], Partial fill upon patient request if the prescription is for a schedule II opioid drug., 153, cm, 01/05/22 11:0... Start Date: 01/05/22 Status: Ordered ferrous sulfate 325 mg oral enteric coated tablet 325 mg, 1, tablet, By Mouth, Every Wednesday, Wednesday and Wednesday, # 39 tablet, Refills 3, Tot. Refills 3, Maintenance, 05/20/23 10:58:00 EST, Route to Pharmacy Electronically, [facility]/pharmacy #[id number], Partial fill upon [...] Refills, Maintenance, 10/28/23 15:44:00 EDT, [id number], 153, cm, 09/30/23 18:13:00 EDT, Height, 100, kg, 08/26/23 18:28:00 EDT, Dry Weight Start Date: 10/28/23 Status: Ordered Metamucil 3.4 gm/5.2 gm oral powder for reconstitution = 1.7 Gm, By Mouth, Daily, PRN as needed for constipation, # 283 Gm, 11 Refills, Maintenance, 11/13/22 10:18:00 EDT, REC Powder, [facility]/pharmacy #[id number], Partial fill upon patient request if the prescription is for a schedule II opioid drug., 153, cm, ... Start Date: 11/13/22 Status: Ordered olmesartan 5 mg oral tablet 1 tablet, By Mouth, Daily, # 90 tablet, 1 Refills, Maintenance, 06/13/23 9:43:00 EST, [facility] 18424, 153, cm, 05/20/23 10:37:00 EST, Height Start Date: 06/13/23 Status: Ordered tirzepatide 5 mg/0.5 mL subcutaneous solution = 5 mg, Subcutaneous Injection, Every week, rotate injection sites; use Tirzepatide 0.25mg weekly x4 weeks then increase dose, # 4 each, 4 Refills, Maintenance, 09/30/23 18:26:00 EDT, Solution, [facility], Partial fill upon patient re... Start Date: 09/30/23 Status: Ordered Vitamin C 500 mg oral tablet 1 tablet = 500 mg, By Mouth, Daily, # 90 tablet, 3 Refills, Maintenance, 10/19/22 18:14:00 EDT, Tablet, [facility]/pharmacy #[id number], Partial fill upon [...] Team Personnel Name: Denisse Acevedo MD Position: [facility] Physician - Primary Care Member Role: PCP Address: Address: [address] [place] [address]- Care Team Related Persons Name: INDERJIT WATT Address: home [address] [place] [address] Name: HITESH WATT Address: [place] [address] Name: PT STATES, NO ONE Name: CHELSIE FRY Address: [place] [address]
--- OUTSIDE RECORDS SUMMARY | 2023-12-17 08:15 | XMS_ITS | Continuity of Care Document ---
Author Organization [facility] Address [address] [place] [address]- Care Team Providers Care Director Medical Affairs Name Role Phone Denisse Acevedo MD Primary Care Physician Encounter [facility] Date(s): 11/13/22 - 12/13/22 [facility] [address] [place], [place] [address] Attending Physician: Admramiro, Sanju Admitting Physician: AdmtrSanju Referring Physician: Admtr, Ar8 Allergies, Adverse Reactions, Alerts Substance Reaction Severity Status metFORMIN GI intolerance Active Immunizations Given and Recorded Vaccine Date Status Refusal Reason SARS-CoV-2 (COVID-19) mRNA BNT-162b2 vac 1, 2 01/24/21 Given SARS-CoV-2 (COVID-19) mRNA BNT-162b2 vac 01/03/21 Given tetanus/diphtheria/pertussis, acel(Tdap) 01/25/17 Given 1? Unknown: Resend to [facility]. 2Result Comment: lot was [id number] Medications diclofenac 1% topical gel 1 application, [...] 4 Refills, Maintenance, 11/13/22 10:38:00 EDT, Solution, [facility]/pharmacy#[id number], Partial fill upon patient request if the pr... Start Date: 11/13/22 Status: Ordered ferrous sulfate 325 mg oral enteric coated tablet 325 mg, 1, tablet, By Mouth, Every Wednesday, Wednesday and Wednesday, # 45 tablet, Refills 3, Tot. Refills 3, Maintenance, 11/13/22 10:26:00 EDT, Route to Pharmacy Electronically, [facility]/pharmacy #[id number], Partial fill upon patient request if the prescription is... Start Date: 11/13/22 Status: Ordered FLUoxetine 40 mg oral capsule 1 capsule = 40 mg, By Mouth, Daily, # 30 capsule, 4 Refills, Maintenance, 09/10/22 19:48:00 EDT, Capsule, [facility]/pharmacy #[id number], Partial fill upon patient [...] Team Personnel Name: Denisse Acevedo MD Position: [facility] Physician - Primary Care Member Role: PCP Address: Address: [address] [place] [address]- Care Team Related Persons Name: INDERJIT WATT Address: home [address] [place] [address] Name: HITESH WATT Address: [place] [address] Name: PT STATES, NO ONE Name: CHELSIE FRY Address: [place] [address]
--- OUTSIDE RECORDS SUMMARY | 2023-12-17 08:15 | XMS_ITS | Continuity of Care Document ---
Author Organization [facility] Address [address] [place] [address]- Care Team Providers Care Piggyback Clerk Name Role Phone Curtis ANTHONY, Denisse Kellogg Primary [facility] Phys[id number] Date(s): 12/05/21 - 03/08/[address] [address] Attending Physician: Not on Staff, Attending MD Allergies, Adverse Reactions, Alerts Substance Reaction Severity Status metFORMIN GI intolerance Active Immunizations Given and Recorded Vaccine Date Status Refusal Reason SARS-CoV-2 (COVID-19) mRNA BNT-162b2 vac 1, 2 01/24/21 Given SARS-CoV-2 (COVID-19) mRNA BNT-162b2 vac 01/03/21 Given tetanus/diphtheria/pertussis, acel(Tdap) 01/25/17 Given 1? Unknown: Resend to [facility]. 2Result Comment: lot was [id number] Medications diclofenac 1% topical gel 1 application, [...] 02/05/22 13:20:00 EDT, Route to Pharmacy Electronically, [facility]/pharmacy #[id number], Partial fill upon [...] 0 Refills, Maintenance, 03/03/21 16:43:00 EDT, Tablet, [facility]/pharmacy #[id number], Partial fill upon [...] Personnel Name: Curtis ANTHONY, Denisse Kellogg Address: [address] [place] [address], -[facility] [address]
--- OUTSIDE RECORDS SUMMARY | 2023-12-17 08:15 | XMS_ITS | Continuity of Care Document ---
Author Organization [facility] Address [address] [place] [address]- Care Team Providers Care Multi Care Technician Name Role Phone Denisse Acevedo MD Primary Care Physician [phone] Encounter [facility] Date(s): 08/25/23 - 09/24/23 [facility] [address] [place] [phone] Allergies, Adverse Reactions, Alerts Substance Reaction Severity Status metFORMIN GI intolerance Active Immunizations Given and Recorded Vaccine Date Status Refusal Reason SARS-CoV-2 (COVID-19) mRNA BNT-162b2 vac 1, 2 01/24/21 Given SARS-CoV-2 (COVID-19) mRNA BNT-162b2 vac 01/03/21 Given tetanus/diphtheria/pertussis, acel(Tdap) 01/25/17 Given 1? Unknown: Resend to [facility]. 2Result Comment: lot was [id number] Medications Blood Pressure Monitor See Instructions, # [...] Maintenance, 08/17/23 9:46:00 EST, ER Tablet, [id number], Partial fill upon patient request if the [...] tablet, 1 Refills, Maintenance, 11/19/23 13:38:00 EST, [facility] 09825, 153, cm, 11/13/22 9:48:00 EDT, Height Start [...] tablet, 1 Refills, Maintenance, 06/13/23 9:43:00 EST, [facility] 12999, 153, cm, 05/20/23 10:37:00 EST, Height Start [...] Team Personnel Name: Denisse Acevedo MD Position: [facility] Physician - Primary Care Member Role: PCP Address: Address: [address] [place] [address]- Care Team Related Persons Name: INDERJIT WATT Address: home [address] [place] [address] Name: HITESH WATT Address: [place] [address] Name: PT STATES, NO ONE Name: CHELSIE FRY Address: [place] [address]
--- OUTSIDE RECORDS SUMMARY | 2023-12-17 08:16 | XMS_ITS | Continuity of Care Document ---
Author Organization [facility] Address [address] [place] [address]- Care Team Providers Care Ornamental Iron Erector Name Role Phone Denisse Acevedo MD Primary Care Phys[id number] Date[facility]s): [facility]28[facility] - 11/05/21 [facility] [address] [place] [address]- Attending Physician: Denisse Acevedo MD Admitting Physician: Denisse Acevedo MD Allergies, Adverse Reactions, Alerts Substance Reaction Severity Status metFORMIN GI intolerance Active Immunizations Given and Recorded Vaccine Date Status Refusal Reason SARS-CoV-2 (COVID-19) mRNA BNT-162b2 vac 1, 2 01/24/21 Given SARS-CoV-2 (COVID-19) mRNA BNT-162b2 vac 01/03/21 Given tetanus/diphtheria/pertussis, acel(Tdap) 01/25/17 Given 1? Unknown: Resend to [facility]. 2Result Comment: lot was [id number] Medications acetaminophen 325 mg oral tablet 650 mg, 2, tablet, By Mouth, 3 times a day, PRN, # 180 tablet, Refills 11, Tot. Refills 11, Maintenance, for pain, 03/03/21 16:43:00 EDT, Route to Pharmacy Electronically, [facility]/pharmacy #[id number], Partialfill upon patient request if the prescription is fo... Start Date: 03/03/21 Status: Ordered ferrous sulfate 325 mg oral enteric coated tablet 325 mg, 1, tablet, By Mouth, Daily, for anemia, # 30 tablet, Refills 11, Tot. Refills 11, Maintenance, 01/02/21 15:55:00 EDT, Route to Pharmacy Electronically, [facility]/pharmacy #[id number], Partial fill upon patient request if the prescription is for a schedule... Start Date: 01/02/21 Status: Ordered hydrOXYzine hydrochloride 25 mg oral tablet 1 tablet = 25 mg, By Mouth, 4 times a day, PRN for anxiety, # 40 tablet, 0 Refills, Maintenance, 03/03/21 16:43:00 EDT, Tablet, [facility]/pharmacy #[id number], Partial fill upon patient request if the prescription is for a schedule II opioid drug., 153, cm, 03/03... Start Date: 03/03/21 Status: Ordered levothyroxine 0.2 mg oral tablet 1 tablet = 200 mcg, By Mouth, Daily, for hypothyroid, # 60 tablet, 11 Refills, Maintenance, 01/02/21 15:33:00 EDT, Tablet, [facility]/pharmacy #[id number], Partial fill upon patient request if the prescription isfor a schedule II opioid drug., 153, cm, 01/02/21 1... Start Date: 01/02/21 Stop Date: 12/23/22 Status: Ordered Nexplanon 68 mg subcutaneous implant 1 each = 68 mg, Subcutaneous Infusion, Once, # 1 each, 0 Refills, Soft Stop, 03/01/17 16:13:38 Start Date: 03/01/17 Status: Ordered sertraline 100 mg oral tablet 1 tablet = 100 mg, By Mouth, Daily, # 30 tablet, 1 Refills, Maintenance, 10/13/21 17:02:00 EDT, Tablet, [facility]/pharmacy #[id number], Partial fill upon patient request if the prescription is for a schedule II opioid drug., 153, cm, 10/13/21 14:57:00 EDT, Height Start Date: 10/13/21 Status: Ordered Vitamin D3 1000 intl units oral capsule 1 capsule = 25 mcg, By Mouth, Daily, for vitamin d deficiency, # 30 capsule, 11 Refills, Maintenance, 09/23/21 17:57:00 EDT, Capsule, [facility]/pharmacy #[id number], Partial fill upon patient request if [...]
--- OUTSIDE RECORDS SUMMARY | 2023-12-17 08:16 | XMS_ITS | Continuity of Care Document ---
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 Name Role Phone Denisse Acevedo MD Primary Care Physician Encounter [facility] Date(s): 08/26/23 - 08/26/[address] [address]- Encounter Diagnosis Chest pain(Final) - 08/26/23 Anxiety(Final) - 08/26/23 Discharge Disposition: A-D/C Home Attending Physician: Pat Damon DO Admitting Physician: Pat Damon DO Referring Physician: Not on Staff, Referring MD Allergies, Adverse Reactions, Alerts Substance Reaction Severity Status metFORMIN GI intolerance Active Immunizations Given and Recorded Vaccine Date Status Refusal Reason SARS-CoV-2 (COVID-19) mRNA BNT-162b2 vac 1, 2 01/24/21 Given SARS-CoV-2 (COVID-19) mRNA BNT-162b2 vac 01/03/21 Given tetanus/diphtheria/pertussis, acel(Tdap) 01/25/17 Given 1? Unknown: Resend to [facility]. 2Result Comment: lot was [id number] Medications Blood Pressure Monitor See Instructions, # [...] Refills, Maintenance, 08/17/23 9:46:00 EST, ER Tablet, [facility]/pharmacy #[id number], Partial fill upon patient request if the prescription is for a schedule II opioid drug., 1 tablet By... Start Date: 08/17/23 Status: Ordered diclofenac 1% topical gel 1 application, Topically, 4 times a day, PRN Pain , Mild, # 100 Gm, 4 Refills, Maintenance, 01/05/22 11:45:00 EDT, Gel, [facility]/pharmacy #[id number], Partial fill upon patient request if the prescription is for a schedule II opioid drug., 153, cm, 01/05/22 11:0... Start Date: 01/05/22 Status: Ordered ferrous sulfate 325 mg oral enteric coated tablet 325 mg, 1, tablet, By Mouth, Every Wednesday, Wednesday and Wednesday, # 39 tablet, Refills 3, Tot. Refills 3, Maintenance, 05/20/23 10:58:00 EST, [id number] Partial fill upon patient request if [...] Refills, Maintenance, 05/02/23 13:38:00 EST, [id number], 153, cm, 11/13/22 9:48:00 EDT, Height Start Date: 05/02/23 Status: Ordered Metamucil 3.4 gm/5.2 gm oral powder for reconstitution = 1.7 Gm, By Mouth, Daily, PRN as needed for constipation, # 283 Gm, 11 Refills, Maintenance, 11/13/22 10:18:00 EDT, REC Powder, [id number], Partial fill upon patient request if the prescription is for a schedule II opioid drug., 153, cm, 06/0... Start Date: 11/13/22 Status: Ordered olmesartan 5 mg oral tablet 1 tablet, By Mouth, Daily, # 90 tablet, 1 Refills, Maintenance, 06/13/23 9:43:00 EST, [id number], 153, cm, 05/20/23 10:37:00 EST, Height Start [...] 4 Refills, Maintenance, 08/04/23 8:55:00 EST, Solution, [facility]/pharmacy #[id number], Partial fill upon patient request if... Start Date: 08/04/23 Status: Ordered Vitamin C 500 mg oral tablet 1 tablet = 500 mg, By Mouth, Daily, # 90 tablet, 3 Refills, Maintenance, 10/19/22 18:14:00 EDT, Tablet, [facility]/pharmacy #[id number], Partial fill upon patient request [...] obesity Confirmed Active Tobacco use Confirmed Active Results Radiology Reports * Exam Date Time Procedure Performing Provider Status 08/26/23 4:36 PM Chest 2 Views Frontal and Lat Vinny Sanders; Charissa (Verified) Notes: (Chest 2 Views Frontal and Lat) Reason For Exam: Shortness of Breath RESULT: Chest 2 Views Frontal and Lat Chest 2 Views Frontal and Lat Hx of Present Illness: pt c o chest pressure heaviness palpitations with LUE pain x2 days. COMPARISON: 12/13/2020 FINDINGS: LINES AND TUBES: None. LUNGS AND PLEURA: Clear lungs. Normal pulmonary vascularity. No pleural effusion. No pneumothorax. HEART, MEDIASTINUM AND SAMRA: Heart is normal in size. Normal mediastinal and hilar contour. BONES AND SOFT TISSUES: No acute abnormality. IMPRESSION: No acute abnormality. WSN: [id number] Ordering Physician: Pat Damon Dictated By: Davi Kathleen MD Dictated Date/Time: 08/26/23 4:37 pm Reviewed By: Davi Kathleen MD Signed By: Davi Kathleen MD Signed Date/Time: 08/26/23 4:37 pm Transcribed By: KELSEY Transcribed Date/Time: 08/26/23 4:36 pm Vital Signs Most recent to oldest [Reference Range]: 1 2 3 Height 153 cm (08/26/23 6:28 PM) 153 cm (08/26/23 2:26 PM) 153 cm (08/26/23 1:25 PM) Weight 100 kg (08/26/23 6:28 PM) 100 kg (08/26/23 2:26 PM) 100 kg (08/26/23:25 PM) Oxygen Saturation [94-100 %] 99 % (08/26/23: PM) 98 % (08/26/23:25 PM) Pulse Rate [55-90 bpm] 76 bpm (08/26/23 6: PM) 84 bpm (08/26/23:25 PM) Body Mass Index [18.5-24.99 kg/m2] 42.72 kg/m2 *>HHI* (08/26/23 1:25 PM) Blood Pressure [90-138/55-84 mm Hg] 124/76mm Hg (08/26/23 6:28 PM) 123/84mm Hg (08/26/23 1:25 PM) Respiratory Rate [16-30 br/min] 18 br/min (08/26/23 6:28 PM) 18 br/min (08/26/23 1:25 PM) Temperature [96.8-100.4 DegF] 97.8 DegF (08/26/23 6:28 PM) 98.0 DegF (08/26/23:25 PM) Mode of Delivery (Oxygen) Room air (08/26/23 6:28 PM) Room air (08/26/23 1:25 PM) Blood pressure sites Arm, right (08/26/23 1:25 PM) Temperature Route Oral (08/26/23 6:28 PM) Oral (08/26/23 1:25 PM) Dry Weight 100 kg (08/26/23 6:28 PM) 100 kg (08/26/23 2:26 PM) 100 kg (08/26/23 1:25 PM) Weight Obtained Via Patient/family state d (08/26/23 1:25 PM) Dry Weight Obtained Via Patient/family s tated (08/26/23 1:25 PM) Social History Social History Type Response Tobacco Use: 4 or less cigar ettes(less than 1/4 pack)/day in last 30 days. Other: 5 ciggs / day. Type: Cigarettes. Sex Female EKG study * Event Display: EKG Authored Date: Note * Pat Damon DO: PERFORM Event Display: Patient Education Leaflets Authored Date: Hydroxyzine Oral Tablet ?? [id number] Hydroxyzine Oral Tablet Uses This medicine is used for the following purposes: ??? agitation ??? anxiety ??? itching ?? Instructions This medicine may be taken with or without food. Store at room temperature away from heat, light, and moisture. Do not keep in the bathroom. Drug interactions can change how medicines work or increase risk for side effects. Tell your healthcare providers about all medicines taken. Include prescription and meqv-pjb-eqywhnk medicines, vitamins, and herbal medicines. Speak with your doctor or pharmacist before starting or stopping any medicine. Tell your doctor if symptoms do not get better or if they get worse. ?? Cautions Tell your doctor and pharmacist if you ever had an allergic reaction to a medicine. Do not use the medication any more than instructed. Your ability to stay alert or to react quickly may be impaired by this medicine. Do not drive or operate machinery until you know how this medicine will affect you. Please check with your doctor before drinking alcohol while on this medicine. Tell the doctor or pharmacist if you are , planning to be , or . Do not share this medicine with anyone who has not been prescribed this medicine. ?? Side Effects The following is a list of some common side effects from this medicine. Please speak with your doctor about what you should do if you experience these or other side effects. ??? constipation ??? dizziness or drowsiness ??? dry mouth Call your doctor or get medical help right away if you notice any of these more serious side effects: ??? confusion ??? fainting ??? hallucinations (unusual thoughts, seeing or hearing things that are not real) ??? fast or irregular heart beats ??? mood changes ??? seizures ??? shakiness ??? difficulty or discomfort urinating ??? blurring or changes of vision A few people may have an allergic reaction to this medicine. Symptoms can include difficulty breathing, skin rash, itching, swelling, or severe dizziness. If you notice any of these symptoms, seek medical help quickly. ?? Extra Please speak with your doctor, nurse, or pharmacist if you have any questions about this medicine. ?? [email or web address] IMPORTANT NOTE: This document tells you briefly how to take your medicine, but it does not tell youall there is to know about it. Your doctor or pharmacist may give you other documents about your medicine. Please talk to them if you have any questions. Always follow their advice. There is a more complete description of this medicine available in [place]. Scan this code on your smartphone or tablet or use the web address below. You can also ask your pharmacist for a printout. If you have any questions, please ask your pharmacist. The display and use of this drug information is subject to Terms of Use. Copyright(c) 2022 [employer]. ?? [employer]. All rights reserved. This information is not intended as a substitute for professional medical care. Always follow your healthcare professional's instructions. ?? * Pat Damon DO: PERFORM Event Display: Patient Education Leaflets Authored Date: [id number] Psychiatric Outpatient Referral List ?? 263 Psychiatric Outpatient Referral List [facility] 24hr Emergency Crisis Line? [address] [facility] [address], [facility]? [phone] ? [phone] [facility] Central Intake? [phone] ? [phone] [facility]? [address], [place] ? [phone] ? Walk in: T-Th 9:45-12:45pm [facility]? [address], [place]? [phone] [facility]? [phone] [facility]? [address], [place]? [phone] [facility]? [address], [place]? [phone] [facility]? [address], [place]? [phone] [facility]? [address], [place]? [phone] [facility]? [address], [place]? [phone] ? Walk in: M-Th 8:00-4:00pm [facility]? [address], [place]? [phone] [facility] [place] [facility]? [address] [place]? [phone] [facility]? [address], [place] ? [phone] [facility]? [address], [place]? [phone] [facility]? [address], [place]? [phone] [facility]? [place] & [place]? [phone] [facility] [address], [place]? [phone] [facility]? [place]? [phone] [facility]? [address], [place] ? [phone] [facility]? [address], [place]? [phone] [facility]? [address], [place]? [phone] ? Walk in: M-W 9:30 or 10:30am [facility]? [address], [place]? [phone] ? [phone] Domestic Violence 24 Hr Hot Lines: ? [facility]? [phone] ? [facility]? [phone]? [facility]? [phone] ? [facility]? [phone] ?? Elder Services: ? [facility] [place] [facility]? [phone] ? [facility] [place] [facility] ? [phone] ?? Legal Advocacy Hot Line: ? [facility] ? [phone] (9:30-12:45 M-Lynne) ?? [place] Dept of Transitional Assistance: ? [place] [phone] / [place] [phone] / [facility] [phone] ?? [facility]? [address], [place], [place]? [phone] [facility]? [address], [place], [place]? [phone] [facility]? [address], [place], [place]? [phone] [facility] ??? [facility]? [address], [place], [place]? [phone] ? [phone] ? After 5pm:? [phone] [facility] ??? [facility] [address], [place], [place]? [phone] ? [phone]? After 5pm:? [phone] [facility]? [address], [place], [place]? [phone] [facility]? [address], [place], [place]? [phone] ? [phone] [facility]? [address], [place], [place]? [phone] [facility]? [address], [place], [place]? [phone] [facility]? [address], [place], [place]? [phone] [facility]? [address], [place], [place]? [phone] ? [phone] [facility] ?[address], [place], [place]? [phone] [facility]? [address], [place], [place]? [phone] ? [phone] [facility]? [address], [place], [place]? [phone] ? [phone] [facility]? [address], [place], [place]? [phone] [facility]? [address], [place], [place] ? [phone] [facility]? [address], [place], [place]? [phone] ? [phone] ? Patient Care team information Care Team Personnel Name: Denisse Acevedo MD Position: [facility] Physician - Primary Care Member Role: PCP Address: Address: [address] [place] [address]- Care Team Related Persons Name: INDERJIT WATT Address: home [address] [place] [id number] Name: HITESH WATT Address: [place] [address] Name: PT STATES, NO ONE Name: CHELSIE FRY Address: [place] [address]
--- NOTE | 2023-12-17 12:54 | A.OFFVIS_ITS ---
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: Details: Start time: 12.41pm, End time: 1.26pm ?I spent 40 minutes speaking with the patient on the phone plus an additional 5 minutes reviewing and updating records for a total of 45 minutes HPI Comments Details: Previous weight loss efforts: Kristel Wakes up: 7am, Sleeps: 12am Breakfast: skips Lunch: skips Dinner: 3-4pm (eggs, toast) Snacks: anytime (nuts) Exercise: none Fluids: Coffee: none, Tea: none, soda: (Regular Coke: 1 bottle/day), juice: none, ETOH: none PFSH Medical History (Updated 12/17/23 @ 13:14 by Remigio Ledezma MD) Anemia Hypothyroidism Hypertension Non-insulin dependent type 2 diabetes mellitus BMI 39.0-39.9,adult Obesity Surgical History (Updated 10/28/23 @ 14:15 by Pat Ken CMA) Hx of lithotripsy Hx of colonoscopy Hx laparoscopic cholecystectomy Hx of section Family History (Updated 10/28/23 @ 14:16 by Pat Ken CMA) Mother Stomach cancer Social History (Updated 10/28/23 @ 14:15 by Pat Ken CMA) Alcohol intake: current Alcohol intake frequency: holidays/special occasions only Alcohol type: hard liquor Patient Tobacco Use Status: Current someday Tobacco user Cigarettes Per Day: 6 Telehealth Telehealth Telehealth Platform: Telephone Location of provider rendering services: practice address Location of patient: address on file Patient Identification confirmed using: Name, : Yes Telehealth method: voice only Patient verbally consented to treatment: Yes Patient verbally consented to billing insurance company: Yes Patient informed of any privacy concerns related to visit: Yes Minutes spent on Phone/Video with Pt.: 45 Assessment & Plan Assessment & Plan (1) Obesity: Code(s): E66.9 - Obesity, unspecified Category: Medical Qualifiers: Obesity type: due to excess calories Obesity classification: adult class 2 (BMI 35 - 39.9) Serious obesity comorbidity presence: with serious comorbidity Body mass index: BMI 39.0-39.9 Qualified Code(s): E66.01 - Morbid (severe) obesity due to excess calories; Z68.39 - Body mass index [BMI] 39.0- 39.9, adult Plan: 1.? Plan for lap sleeve gastrectomy. If diaphragmatic or ventral hernias are present at time of surgery, these will be repaired laparoscopically as well. Risks and complications include possible conversion to an open procedure, anas tomotic leak, bleeding requiring transfusion, small bowel obstruction, , DVT and pulmonary embolism, cardiac, or pulmonary complications, as nursing home complications such as anastomotic ulcer, insufficient weight loss and vitamin deficiencies. I emphasized the importance of close follow-up, adherence to instructions and good communication. 2. You will receive a link of our software carisa to generate an individualized nutritional and exercise plan specific for you. Please send me a screenshot of the plans you will generate Meal to include lean meat (beef, fish, pork, turkey, chicken), or fijian yogurt, or egg whites, or beans with a salad with olive oil and fruits (berries, pears, apples, kiwi). Avoid salt, breads, potatoes, rice, pasta, desserts. ?3. If you choose shakes, each shake would be drunk slowly, like coffee in a period of 2 hours. ?4. If you choose bars, cut each bar in 4 pieces and eat each piece in 30min ?to make each bar last 2 hours. ?5. I emphasized the importance of measuring accurately the food portion and measure it when serving the food in plate ?6. The meal portions include a specific number of forks of meat and salad. You always eat the meat portion but you can replace up to half of salad/vegetables portion with rice, potatoes or pasta, or a fruit ?if you like. The less you do it the better weight loss will be. ?7. One full-size fork is what it can be scooped on the fork without falling aside and not what can be bit with the fork. Use regular forks like those you find in a typical restaurant. ?8.? Please send me weight measurements as soon as possible and then once a week. Always include your diet and exercise plan. 9. The best choice would be to purchase a stationary bike, elliptical or treadmill at home that can track calories. Let me know if you do so I can give you an exercise plan. ?10.?It is important of avoiding and for at least 18 months postoperatively and has been discussed at the infosession. ?11. Goal is to lose at least 1.5-2lbs per week ?12. Goal to lose 10% of your weight before surgery, which is about 20lbs. Ultimate weight goal: 180lbs before surgery 13. Please follow the diet plan exactly without any change. If you don't like something about the plan or you feel hungry you need to communicate with me so I can help you revise the plan. You should not change the plan yourself. 14. To be scheduled for EGD to assess the anatomy of your stomach. The possibility of biopsies was discussed. Patient needs to avoid use of NSAIDs and aspirin for 1 week prior to EGD. Risks of perforation and bleeding was discussed with the patient. This will be an outpatient procedure with IV sedation. Orders: Orders H Pylori Breath Test Today E03.9 - Hypothyroidism, unspecified, E11.9 - Type 2 diabetes mellitus without complications, E66.9 - Obesity, unspecified, I10 - Essential (primary) hypertension, Z68.39 - Body mass index [BMI] 39.0-39.9, adult Comprehensive Met. Panel Today E03.9 - Hypothyroidism, unspecified, E11.9 - Type 2 diabetes mellitus without complications, E66.9 - Obesity, unspecified, I10 - Essential (primary) hypertension, Z68.39 - Body mass index [BMI] 39.0- 39.9, adult Zinc Today E03.9 - Hypothyroidism, unspecified, E11.9 - Type 2 diabetes mellitus without complications, E66.9 - Obesity, unspecified, I10 - Essential (primary) hypertension, Z68.39 - Body mass index [BMI] 39.0-39.9, adult Vitamin B1 Today E03.9 - Hypothyroidism, unspecified, E11.9 - Type 2 diabetes mellitus without complications, E66.9 - Obesity, unspecified, I10 - Essential (primary) hypertension, Z68.39 - Body mass index [BMI] 39.0-39.9, adult Vitamin A Today E03.9 - Hypothyroidism, unspecified, E11.9 - Type 2 diabetes mellitus without complications, E66.9 - Obesity, unspecified, I10 - Essential (primary) hypertension, Z68.39 - Body mass index [BMI] 39.0-39.9, adult TSH reflex Free T4 Today E03.9 - Hypothyroidism, unspecified, E11.9 - Type 2 diabetes mellitus without complications, E66.9 - Obesity, unspecified, I10 - Essential (primary) hypertension, Z68.39 - Body mass index [BMI] 39.0-39.9, adult XR chest 2V Today E03.9 - Hypothyroidism, unspecified, E11.9 - Type 2 diabetes mellitus without complications, E66.9 - Obesity, unspecified, I10 - Essential (primary) hypertension, Z68.39 - Body mass index [BMI] 39.0-39.9, adult Insulin Today E03.9 - Hypothyroidism, unspecified, E11.9 - Type 2 diabetes mellitus without complications, E66.9 - Obesity, unspecified, I10 - Essential (primary) hypertension, Z68.39 - Body mass index [BMI] 39.0-39.9, adult Hemoglobin A1c Today E03.9 - Hypothyroidism, unspecified, E11.9 - Type 2 diabetes mellitus without complications, E66.9 - Obesity, unspecified, I10 - Essential (primary) hypertension, Z68.39 - Body mass index [BMI] 39.0-39.9, adult Complete Blood Count Auto Diff Today E03.9 - Hypothyroidism, unspecified, E11.9 - Type 2 diabetes mellitus without complications, E66.9 - Obesity, unspecified, I10 - Essential (primary) hypertension, Z68.39 - Body mass index [BMI] 39.0- 39.9, adult Lipid Panel Today E03.9 - Hypothyroidism, unspecified, E11.9 - Type 2 diabetes mellitus without complications, E66.9 - Obesity, unspecified, I10 - Essential (primary) hypertension, Z68.39 - Body mass index [BMI] 39.0-39.9, adult IRON PROFILE Today E03.9 - Hypothyroidism, unspecified, E11.9 - Type 2 diabetes mellitus without complications, E66.9 - Obesity, unspecified, I10 - Essential (primary) hypertension, Z68.39 - Body mass index [BMI] 39.0-39.9, adult Vitamin B12 and Folate Today E03.9 - Hypothyroidism, unspecified, E11.9 - Type 2 diabetes mellitus without complications, E66.9 - Obesity, unspecified, I10 - Essential (primary) hypertension, Z68.39 - Body mass index [BMI] 39.0-39.9, adult C Reactive Protein Today E03.9 - Hypothyroidism, unspecified, E11.9 - Type 2 diabetes mellitus without complications, E66.9 - Obesity, unspecified, I10 - Essential (primary) hypertension, Z68.39 - Body mass index [BMI] 39.0-39.9, adult Ferritin Today E03.9 - Hypothyroidism, unspecified, E11.9 - Type 2 diabetes mellitus without complications, E66.9 - Obesity, unspecified, I10 - Essential (primary) hypertension, Z68.39 - Body mass index [BMI] 39.0-39.9, adult Vitamin D 25-OH Total Today E03.9 - Hypothyroidism, unspecified, E11.9 - Type 2 diabetes mellitus without complications, E66.9 - Obesity, unspecified, I10 - Essential (primary) hypertension, Z68.39 - Body mass index [BMI] 39.0-39.9, adult US abdomen comp w elastography Today E03.9 - Hypothyroidism, unspecified, E11.9 - Type 2 diabetes mellitus without complications, E66.9 - Obesity, unspecified, I10 - Essential (primary) hypertension, Z68.39 - Body mass index [BMI] 39.0- 39.9, adult ECG 12 lead EKG Today E03.9 - Hypothyroidism, unspecified, E11.9 - Type 2 diabetes mellitus without complications, E66.9 - Obesity, unspecified, I10 - Essential (primary) hypertension, Z68.39 - Body mass index [BMI] 39.0-39.9, adult FL upper GI w air Today E03.9 - Hypothyroidism, unspecified, E11.9 - Type 2 diabetes mellitus without complications, E66.9 - Obesity, unspecified, I10 - Essential (primary) hypertension, Z68.39 - Body mass index [BMI] 39.0-39.9, adult Referrals Behavioral Health Referral E03.9 - Hypothyroidism, unspecified, E11.9 - Type 2 diabetes mellitus without complications, E66.9 - Obesity, unspecified, I10 - Essential (primary) hypertension, Z68.39 - Body mass index [BMI] 39.0-39.9, adult Nutrition/Dietitian Referral E03.9 - Hypothyroidism, unspecified, E11.9 - Type 2 diabetes mellitus without complications, E66.9 - Obesity, unspecified, I10 - Essential (primary) hypertension, Z68.39 - Body mass index [BMI] 39.0-39.9, adult
[2023-12-17 13:08] VITALS: BMI 39.5
== END 2023-12-17 13:27 | disposition home or self-care (01) ==
LOC: HO.HBS 08:12
PROVIDERS: PCP Internal Medicine; Visit Provider Surgery
DX: E66.01 Morbid (severe) obesity due to excess calories (principal); Z68.39 Body mass index [BMI] 39.0-39.9, adult
CPT/HCPCS: 99204

== ENCOUNTER → 2023-12-17 08:12 | Outpatient (BNVA) | payer OTHER, SELFPAY | PROVIDERS: PCP Internal Medicine; Visit Provider Surgery ==